=== PATIENT | male | born 1955 | race Asian ===

== ENCOUNTER 2023-06-16 06:07 | Inpatient (IN) | payer OTHER, SELFPAY ==
[2023-06-16] VITALS (51 sets, daily range): BP systolic 87–209; BP diastolic 42–134; PULSE 71; BMI 19.5
[2023-06-16 03:53] LABS: % Basophils 0.5 % (0-2); % Eosinophils 2.8 % (0-6); % Immature Granulocytes 0.2 % (0-0.5); % Lymphocytes 20.1 % (20.5-51.1); % Monocytes 7.7 % (1.7-9.3); % Neutrophils 68.7 % (42.2-75.2); Absolute Eosinophils 0.2 10^3/uL (0-0.7); Absolute Lymphocytes 1.8 10^3/uL (1.2-3.4); Absolute Monocytes 0.7 10^3/uL (0.1-0.6); Hematocrit 32.2 % (39.0-52.0); Hemoglobin 10.8 g/dL (13.0-18.0); Mean Corp Hgb Conc. 33.5 g/dL (33.0-37.0); Mean Corpuscular Hgb 25.2 pg (27.0-31.0); Mean Corpuscular Volume 75.2 fL (80.0-94.0); Mean Platelet Volume 10.7 fL (7.4-10.4); Nucleated Red Blood Cells % 0 % (-); Platelet Count 220 10^3/uL (130-400); Red Blood Cell Count 4.28 10^6/uL (4.70-6.10); Red Cell Dist. Width 15.5 % (11.5-14.5); White Blood Cell Count 8.7 10^3/uL (4.8-10.8)
[2023-06-16 03:53] LABS: Glucose - Point of Care 221 mg/dl (70-99)
--- NOTE | 2023-06-16 04:00 | ED.GENMED ---
History of Present Illness
<MARY Wagner - Last Filed: 06/16/23 04:16>
General
Chief Complaint: Breathing Problem
Source: patient and ambulance crew
Exam Limitations: none
Time Seen by Provider: 06/16/23 03:36
Travel History
Have you had any contact with someone who has COVID-19?: No
Do you have any symptoms of coronavirus? Fever > 100 degrees, chills, cough, shortness of breath, sore throat, loss of taste or smell, muscle aches, or headache?: No
History of Present Illness
History of Present Illness:
67 y/o M with ESRD, CHF presents to ED complaining of SOB x 4 hours and cough x 3 days. Patient arrived by EMS for SOB tonight, reported pulse ox 88%. Patient has dialysis scheduled for tomorrow (Friday, , Friday). He reports runny nose
for 2-3 days as well. He has not taken any medications for his symptoms. Patient denies sick contacts. Denies fever, chills, body aches, headache, nausea, vomiting, diarrhea, chest pain, or palpitations.
Past History
<MARY Wagnre - Last Filed: 06/16/23 04:16>
Past History
ED Past Medical History: CAD, CHF (Right sided weakness), COPD, CVA (with right sided weakness), HTN, Hypercholesterolemia, IDDM, Renal failure (Dialysis - - Friday), Seizures, Hypothyroidism and Other (Anemia, PNA, Ulcerative colitis)
ED Past Surgical History: Cardiac (Stents, Angioplasty) and Other (AV fistula left upper extremity, hernia repair)
Patient has exhibited threatening behavior?: No
Social History
Tobacco: Former smoker (Quit 1999)
Alcohol: None
Drug: None
Personal:
Living: with family
Employment: Retired
Family History
Family History: Other (Reviewed and noncontributory)
Review of Systems
<MARY Wagner - Last Filed: 06/16/23 04:16>
Review of Systems
Allergies reviewed?: Yes
All Other Systems: ROS reviewed and negative except as documented in HPI and ROS
Constitutional: Reports no symptoms
EENT: Reports runny nose
Respiratory: Reports cough and trouble breathing
Cardiac: Reports no symptoms
ABD/GI: Reports no symptoms
: Reports no symptoms
Musculoskeletal: Reports no symptoms
Skin: Reports no symptoms
Neurological: Reports no symptoms
Endocrine: Reports no symptoms
Hematologic/Lymphatic: Reports no symptoms
Psychiatric: Reports no symptoms
Phy Exam
<MARY Wagner - Last Filed: 06/16/23 04:16>
General Physical Exam
General Presentation: well appearing and no apparent distress
General age: appears stated age
General Skin: warm and dry
General Habitus: normal
General Mental: alert
General Hydration: appears well hydrated
ENT Exam
ENT Exam: EOMI, TM's normal and pharynx normal
Eye Exam
Eye Exam: PERRL, EOMI and conjunctiva normal
Cardiovascular Exam
Cardiovascular Exam: regular rate/rhythm and other (murmur )
Gastrointestinal Exam
Gastrointestinal Exam: normal bowel sounds, non tender, soft and non distended
Neurological Exam
Neurological Exam: alert and oriented x3
Skin Exam
Skin Exam: normal color and warm/dry
Psychiatric Exam
Psychiatric Exam: normal mood/affect
<Turner Meehan MD - Last Filed: 06/17/23 15:13>
Heart Failure Risk
Heart Failure Risk Score: Yes
History of Stroke or TIA: No
History of intubation for respiratory distress: No
Heart rate on ED arrival >/= 110: No
SaO2 <90% on arrival on room air: Yes
HR >/=110 during 3min walk test (or too ill to perform test): No
ECG has acute ischemic changes: No
Urea >/=12mmol/L (BUN 33.6mg/dL): Yes
Serum CO2>/=35mmol/L: No
Troponin I or T elevated to MA Level (0.4mg/dL): No
NT-proBNP >/=5,000ng/L (5,000pg/ml): Yes
HF Risk Score: 3
Admission Status: HIGH RISK 15.9% Consider SNF treatment or admission to hospital
Course
<MARY Wagner - Last Filed: 06/16/23 04:16>
Orders/Labs/Results
Orders:
Orders
06/16/23 03:35
EKG [Electrocardiogram (*1)] Urgent
Reason for Study: Shortness of Breath
06/16/23 03:36
EKG- Treatment ONCE
06/16/23 03:45
CR Chest Portable - 1 View Urgent
Comment:
Reason For Exam: sob
Reason Study Needs to be Portable: Patient Unstable
06/16/23 03:47
Complete Blood Count/With Diff Urgent
Comprehensive Metabolic Panel Urgent
Magnesium Urgent
NT-proBNP Urgent
TSH Urgent
Comment: TSH ADDED ON BY FLOOR 12:45PM 06-16-23
Troponin I Urgent
06/16/23 04:22
COVID-19 Antigen Urgent
Source: Nasal Swab
06/16/23 04:45
Nitroglycerin 100 mg/250 ml [Nitroglycerin Premix] 100 mg in 250 ml IV PER PROTOCOL
Initial dose in mcg/min, then titrate:: 10
Titrate to keep:: SBP < 160 mmHg
Titrate by mcg/min:: 5 mcg/min, may increase by 10 mcg/min if dose > 20 mcg/min
Frequency of titrations (minutes):: every 3-5 minutes
Maximum dose in mcg/min:: 200
Begin to taper infusion when:: Remained at goal for 2hrs
Taper by mcg/min:: 5 mcg/min
Frequency of taper (minutes) if patient maintains goal:: 30
Taper to off?: Yes
If infusion off & no longer maintaining goal:: Contact Provider
06/16/23 04:52
Dexamethasone Sod Phosphate [Decadron] 6 mg IV NOW STA
Ipratropium/Albuterol Sulfate [Duoneb] 3 ml INH R NOW ONE
06/16/23 04:57
Furosemide [Lasix] 40 mg IV NOW STA
06/16/23 05:52
Admit/Transfer Patient As Directed
Co-Sign Provider:
Level of Care: Inpatient admission
Assign to:: IMU- Intermediate Care
Physician / Group: [email or web address]
Diagnosis: Dyspoea, HTN urgency, acute on chr HFpEF, ESRD on HD
Reason for Hospitalization: Dysnoea, HTN urgency, acute on chr HFpEF, ESRD on HD
Expected length of stay greater than two midnights?: Yes
ELOS- Estimated Length of Stay in days: 3
I certify the patient meets the requirements for IP care: Yes
06/16/23 05:58
Code Status As Directed
Resuscitation Status: Full Code
06/16/23 05:59
Dextrose 50%-Water [Dextrose 50% Syringe] 12.5 grams IV [id number] PRN
Glucagon [GlucaGen] 1 mg IM PRN PRN
06/16/23 Breakfast
Cholesterol Lowering
At Your Request: Limited Participation
Fluid Restriction: 1200 mL/day (40 oz)
Cholesterol Lowering: Sodium, 2 Gram
Potassium, 2 gram
06/16/23 07:21
Acetaminophen [Tylenol] 650 mg PO Q4HPRN PRN
06/16/23 07:21
NEPHROLOGY CONSULT Routine
Consulting Provider: Emerita Gresham
Was physician already notified: Yes
Reason for consult: acute on chr HfpEF - vol managed by HD for ESRD
Activity As Directed
Activity Level: With Assistance
Bedside Glucose Monitoring As Directed
Frequency: AC&HS
Comment: Change to q6h if pt on TPN, tube feeding or not eating
Intake/ Output As Directed
Frequency: Per unit guidelines
Pneumatic Compression Sleeves As Directed
Type: Knee high
Vital Signs As Directed
Frequency: Per unit guidelines
Weight As Directed
Frequency: Daily
DX Deep Vein Thrombosis Video Routine
06/16/23 07:30
Insulin Aspart Corrective Low [Novolog Flexpen-Low Resistance] See Protocol SC AC
06/16/23 08:00
Aspirin Low Dose EC [Aspir Low (Enteric Coated)] 81 mg PO DAILY
Atorvastatin [Lipitor] 80 mg PO DAILY
Carvedilol [Coreg] 12.5 mg PO BID
Levothyroxine [Synthroid] 75 mcg PO DAILY
Lisinopril [Zestril] 20 mg PO DAILY
06/16/23 10:00
Clopidogrel Bisulfate [Plavix] 75 mg PO DAILY
06/16/23 22:00
Levetiracetam Extended Release [Keppra Xr (Extended Release)] 500 mg PO HS
Quetiapine Fumarate [Seroquel] 12.5 mg PO HS
06/17/23 07:33
Basic Metabolic Panel IN AM
Complete Blood Count/No Diff IN AM
Glycohemoglobin (HgbA1c) IN AM
06/18/23 06:00
Basic Metabolic Panel IN AM
Abnormal Lab Results
06/16/23 06/16/23
03:47 03:51
RBC 4.28 L 10^6/uL
(4.70-6.10)
Hgb 10.8 L g/dL
(13.0-18.0)
Hct 32.2 L %
(39.0-52.0)
MCV 75.2 L fL
(80.0-94.0)
MCH 25.2 L pg
(27.0-31.0)
RDW 15.5 H %
(11.5-14.5)
MPV 10.7 H fL
(7.4-10.4)
Absolute Monos (auto) 0.7 H 10^3/uL
(0.1-0.6)
Lymphocytes % 20.1 L %
(20.5-51.1)
Chloride 94 L mmol/L
(98-107)
BUN 37 H mg/dl
(9-20)
Creatinine 8.3 H* mg/dL
(0.7-1.3)
Glucose 256 H mg/dl
(70-99)
Magnesium 2.4 H mg/dl
(1.6-2.3)
Alkaline Phosphatase 148 H U/L
(38-126)
POC Glucose 221 H mg/dl
(70-99)
06/16/23 03:47
06/16/23 03:47
Vital Signs
Initial and Last Documented VS:
Initial Vital Signs
Pulse Ox
95
06/16/23 03:34
Last Documented Vital Signs
Temp Pulse Resp BP Pulse Ox
97.9 F 59 16 116/48 100
06/17/23 13:08 06/17/23 13:08 06/17/23 13:08 06/17/23 13:08 06/17/23 13:08
<Turner Meehan MD - Last Filed: 06/17/23 15:13>
Orders/Labs/Results
Orders:
Orders
06/16/23 03:35
EKG [Electrocardiogram (*1)] Urgent
Reason for Study: Shortness of Breath
06/16/23 03:36
EKG- Treatment ONCE
06/16/23 03:45
CR Chest Portable - 1 View Urgent
Comment:
Reason For Exam: sob
Reason Study Needs to be Portable: Patient Unstable
06/16/23 03:47
Complete Blood Count/With Diff Urgent
Comprehensive Metabolic Panel Urgent
Magnesium Urgent
NT-proBNP Urgent
TSH Urgent
Comment: TSH ADDED ON BY FLOOR 12:45PM 06-16-23
Troponin I Urgent
06/16/23 04:22
COVID-19 Antigen Urgent
Source: Nasal Swab
06/16/23 04:45
Nitroglycerin 100 mg/250 ml [Nitroglycerin Premix] 100 mg in 250 ml IV PER PROTOCOL
Initial dose in mcg/min, then titrate:: 10
Titrate to keep:: SBP < 160 mmHg
Titrate by mcg/min:: 5 mcg/min, may increase by 10 mcg/min if dose > 20 mcg/min
Frequency of titrations (minutes):: every 3-5 minutes
Maximum dose in mcg/min:: 200
Begin to taper infusion when:: Remained at goal for 2hrs
Taper by mcg/min:: 5 mcg/min
Frequency of taper (minutes) if patient maintains goal:: 30
Taper to off?: Yes
If infusion off & no longer maintaining goal:: Contact Provider
06/16/23 04:52
Dexamethasone Sod Phosphate [Decadron] 6 mg IV NOW STA
Ipratropium/Albuterol Sulfate [Duoneb] 3 ml INH R NOW ONE
06/16/23 04:57
Furosemide [Lasix] 40 mg IV NOW STA
06/16/23 05:52
Admit/Transfer Patient As Directed
Co-Sign Provider:
Level of Care: Inpatient admission
Assign to:: IMU- Intermediate Care
Physician / Group: [email or web address]
Diagnosis: Dyspoea, HTN urgency, acute on chr HFpEF, ESRD on HD
Reason for Hospitalization: Dysnoea, HTN urgency, acute on chr HFpEF, ESRD on HD
Expected length of stay greater than two midnights?: Yes
ELOS- Estimated Length of Stay in days: 3
I certify the patient meets the requirements for IP care: Yes
06/16/23 05:58
Code Status As Directed
Resuscitation Status: Full Code
06/16/23 05:59
Dextrose 50%-Water [Dextrose 50% Syringe] 12.5 grams IV [id number] PRN
Glucagon [GlucaGen] 1 mg IM PRN PRN
06/16/23 Breakfast
Cholesterol Lowering
At Your Request: Limited Participation
Fluid Restriction: 1200 mL/day (40 oz)
Cholesterol Lowering: Sodium, 2 Gram
Potassium, 2 gram
06/16/23 07:21
Acetaminophen [Tylenol] 650 mg PO Q4HPRN PRN
06/16/23 07:21
NEPHROLOGY CONSULT Routine
Consulting Provider: Emerita Gresham
Was physician already notified: Yes
Reason for consult: acute on chr HfpEF - vol managed by HD for ESRD
Activity As Directed
Activity Level: With Assistance
Bedside Glucose Monitoring As Directed
Frequency: AC&HS
Comment: Change to q6h if pt on TPN, tube feeding or not eating
Intake/ Output As Directed
Frequency: Per unit guidelines
Pneumatic Compression Sleeves As Directed
Type: Knee high
Vital Signs As Directed
Frequency: Per unit guidelines
Weight As Directed
Frequency: Daily
DX Deep Vein Thrombosis Video Routine
06/16/23 07:30
Insulin Aspart Corrective Low [Novolog Flexpen-Low Resistance] See Protocol SC AC
06/16/23 08:00
Aspirin Low Dose EC [Aspir Low (Enteric Coated)] 81 mg PO DAILY
Atorvastatin [Lipitor] 80 mg PO DAILY
Carvedilol [Coreg] 12.5 mg PO BID
Levothyroxine [Synthroid] 75 mcg PO DAILY
Lisinopril [Zestril] 20 mg PO DAILY
06/16/23 10:00
Clopidogrel Bisulfate [Plavix] 75 mg PO DAILY
06/16/23 22:00
Levetiracetam Extended Release [Keppra Xr (Extended Release)] 500 mg PO HS
Quetiapine Fumarate [Seroquel] 12.5 mg PO HS
06/17/23 07:33
Basic Metabolic Panel IN AM
Complete Blood Count/No Diff IN AM
Glycohemoglobin (HgbA1c) IN AM
06/18/23 06:00
Basic Metabolic Panel IN AM
Abnormal Lab Results
06/16/23 06/16/23
03:47 03:51
RBC 4.28 L 10^6/uL
(4.70-6.10)
Hgb 10.8 L g/dL
(13.0-18.0)
Hct 32.2 L %
(39.0-52.0)
MCV 75.2 L fL
(80.0-94.0)
MCH 25.2 L pg
(27.0-31.0)
RDW 15.5 H %
(11.5-14.5)
MPV 10.7 H fL
(7.4-10.4)
Absolute Monos (auto) 0.7 H 10^3/uL
(0.1-0.6)
Lymphocytes % 20.1 L %
(20.5-51.1)
Chloride 94 L mmol/L
(98-107)
BUN 37 H mg/dl
(9-20)
Creatinine 8.3 H* mg/dL
(0.7-1.3)
Glucose 256 H mg/dl
(70-99)
Magnesium 2.4 H mg/dl
(1.6-2.3)
Alkaline Phosphatase 148 H U/L
(38-126)
POC Glucose 221 H mg/dl
(70-99)
06/16/23 03:47
06/16/23 03:47
Vital Signs
Initial and Last Documented VS:
Initial Vital Signs
Pulse Ox
95
06/16/23 03:34
Last Documented Vital Signs
Temp Pulse Resp BP Pulse Ox
97.9 F 59 16 116/48 100
06/17/23 13:08 06/17/23 13:08 06/17/23 13:08 06/17/23 13:08 06/17/23 13:08
<Turner Meehan MD - Last Filed: 06/17/23 15:13>
*Critical Care Note
Total Time (30-74mins, 75-104mins- exclusive of procedures): 40 min
ED Attending Note
<MARY Wagner - Last Filed: 06/16/23 04:16>
-
Portions of this chart may have been created with voice recognition software.� Occasional wrong word or��sound alike� substitutions may have occurred due to the inherent limitations of voice recognition software.
<Turner Meehan MD - Last Filed: 06/17/23 15:13>
ED Attending Note
Patient seen and examined by attending physician: Yes
ED Attending Note:
Patient with history of end-stage renal disease on hemodialysis (Friday, , Friday), presents to ED secondary to worsening shortness of breath over the past 2 days despite receiving full dialysis session on Friday. Patient also reports
cough and runny nose x 3 days. Denies leg pain or swelling. Denies chest pain. Denies back pain. Denies fever.
Physical Exam
General: moderate respiratory distress, not acutely ill. afebrile
Head: nc/at. eomi
Neck: supple. no meningeal signs.
Heart: s1/s2 regular rate and rhythm, no murmur. equal radial pulses.
Lungs: moderate respiratory distress. rhonchi/wheezing bilaterally
Abdomen: normal bowel sounds. not tender.
Neuro: alert and oriented. no focal neurological deficits
Skin: no rash
Psychiatric: well kept. interactive and cooperative
Extremities: no edema. no calf tenderness.
History/exam concerning for fluid overload, in the setting of probable URI. Hypoxia improved with supplemental oxygen.
Nitroglycerin gtt started for blood pressure control, as well as vasodilation, until dialysis can be arranged.
Nephrology () notified via [employer]
Critical care statement: A total of 40 minutes of critical care time was provided for this patient. This includes management of unstable vital signs, evaluation of the patient at bedside, reviewing the patient's pertinent medical records, discussion
with consultants, review of old EKGs and review of pertinent medical records. This time with separate from time utilized to perform the aforementioned documented procedures
Discharge Plan
Departure
Patient Disposition: Admit
Date of Disposition: 06/16/23
Time of Disposition: 04:57
Admit to: Telemetry
Presentation/result/management discussed w/ accepting MD/DO: Hospitalist
Discharge Problem:
Fluid overload, URI (upper respiratory infection)
Interventions
Interventions:
*Risk Screen - Suicide Last Done: 06/16/23 10:21
*General Assessment Last Done: 06/16/23 03:43
*Neglect/Abuse Screening Last Done: 06/16/23 03:43
ED- Fall Risk Assessment Last Done: 06/16/23 07:32
*ED COVID-19 Vaccine History Last Done: 06/16/23 03:43
*Nursing Disposition Last Done: 06/16/23 07:32
ED- Cardiac Assessment Last Done: 06/16/23 03:50
ED- Pulmonary Assessment Last Done: 06/16/23 03:50
Discharge Date and Time
Discharge Date/Time: 06/16/23 07:32
[2023-06-16 04:24] LABS: ALT (SGPT) 15 U/L (0-50); AST (SGOT) 23 U/L (17-59); Albumin 4.3 g/dl (3.5-5.0); Alkaline Phosphatase 148 U/L (38-126); Blood Urea Nitrogen 37 mg/dl (9-20); Calcium 9.7 mg/dl (8.4-10.2); Carbon Dioxide 30 mmol/L (22-30); Chloride 94 mmol/L (98-107); Glucose 256 mg/dl (70-99); Magnesium 2.4 mg/dl (1.6-2.3); Potassium 4.4 mmol/L (3.5-5.1); Sodium 137 mmol/L (135-145); eGFR 6.51
[2023-06-16 04:25] LABS: NT-proBNP > 27000 pg/ml; Troponin I 0.034 ng/ml
[2023-06-16 04:50] LABS: COVID-19 Antigen Negative (Negative)
[2023-06-16] MEDS: DECADRON 6 MG IV (05:00)
[2023-06-16] MEDS: DUONEB 3 ML INH (05:00)
[2023-06-16] MEDS: NITROGLYCERIN PREMIX 250 IV (05:03)
[2023-06-16] MEDS: LASIX 40 MG IV (05:46)
--- NOTE | 2023-06-16 05:47 | HPS.HSE ---
Addendum entered and electronically signed by Thomas Crystal MD 06/16/23 06:24:
level of care; switch to IMU while on Nitro gtt
Original Note:
Family Physician
-
Family Physician: Marcelo Lares
Chief Complaint
-
SoB
History of Present Illness
67M HX ESRD on HD ( TTS) , CHF pw SOB x 4 hours and cough x 3 days.
[facility] for SOB tonight, reported pulse ox 88%.
He reports runny nose for 2-3 days as well. He has not taken any medications for his symptoms. Patient denies sick contacts.
Denies fever, chills, body aches, headache, nausea, vomiting, diarrhea, chest pain, or palpitations.
Medical History
Past Medical History
Past Medical History: Reports Other
Additional Past Medical History:
CAD, CHF (Right sided weakness), COPD, CVA (with right sided weakness), HTN, Hypercholesterolemia, IDDM, Renal failure (Dialysis - Friday), Seizures, Hypothyroidism and Other (Anemia, PNA, Ulcerative colitis)
Past Surgical History: Reports Other
Additional Past Surgical History:
Cardiac (Stents, Angioplasty) and Other (AV fistula left upper extremity, hernia repair)
Social History
Tobacco: Former Smoker
Alcohol: None
Personal:
Living: With Family
Family History
Family History: Not pertinent
Allergies / Home Medications
Allergies reflects when Allergies were last updated in [employer].
Home Medications with original date entered in [employer]
Allergy/Medication List:
Allergies
Allergy/AdvReac Type Severity Reaction Status Date / Time
heparin Allergy pt refuses Verified 04/01/23 15:28
d/t
denominational
reasons
latex Allergy Itching Verified 04/01/23 06:22
pork derived (porcine) Allergy denominational Verified 04/01/23 06:22
reasons
Home Medications
clopidogrel 75 mg tablet 75 mg PO DAILY Blood clot prevention/tx 05/10/21
sevelamer HCl 800 mg tablet 1,600 mg PO UD Kidney Disease 05/10/21
vitamin B complex-vitamin C-folic acid 0.8 mg tablet (Nephro-Miranda) 1 tab PO DAILY Supplement ##0 05/10/21
lacosamide 50 mg tablet 50 mg PO BID Seizures 05/22/21
docusate sodium 100 mg capsule (Colace) 100 mg PO BID Constipation 03/27/22
atorvastatin 80 mg tablet (Lipitor) 80 mg PO DAILY High cholesterol 08/28/22
calcitriol 0.25 mcg capsule 0.25 mcg PO DAILY Kidney Disease 08/28/22
isosorbide mononitrate 30 mg tablet,extended release 24 hr 30 mg PO DAILY Blood pressure 08/28/22
levetiracetam 500 mg tablet,extended release 24 hr 500 mg PO HS Seizures 08/28/22
linaclotide 72 mcg capsule (Linzess) 72 mcg PO DAILYPRN PRN constipation 08/28/22
mesalamine 400 mg capsule (with delayed release tablets inside) 400 mg PO BID Gastrointestinal issue 08/28/22
lisinopril 20 mg tablet 20 mg PO DAILY Blood pressure #30 tabs 08/29/22
insulin glargine 100 unit/mL subcutaneous solution (Lantus U-100 Insulin) 10 unit (0.1 mL) SC HS Diabetes #0 mL 11/13/22
carvedilol 12.5 mg tablet 12.5 mg PO BID Heart Failure 11/27/22
levothyroxine 25 mcg tablet 75 mcg PO DAILY Thyroid 11/27/22
quetiapine 25 mg tablet (Seroquel) 12.5 mg PO HS Mental Health/Anxiety 02/28/23
acetaminophen 325 mg tablet (Tylenol) 325 mg PO DAILYPRN PRN mild pain 04/01/23
aspirin 81 mg tablet,delayed release 81 mg PO DAILY Blood Clot Prevention/Tx 04/01/23
bimatoprost 0.01 % eye drops (Lumigan) 1 drp BOTH EYES QPM Eye Condition 04/01/23
insulin aspart U-100 100 unit/mL (3 mL) subcutaneous pen (Novolog FlexPen U-100 Insulin aspart) 0 sliding scale dose SC UD Diabetes 04/01/23
Review of Systems
-
Constitutional: Reports No Symptoms
EENT: Reports No Symptoms
Respiratory: Reports See HPI
Cardiac: Reports No Symptoms
Abdomen/GI: Reports No Symptoms
: Reports No Symptoms
Musculoskeletal: Reports No Symptoms
Skin: Reports No Symptoms
Neurological: Reports No Symptoms
Endocrine: Reports No Symptoms
Hematologic/Lymphatic: Reports No Symptoms
Psych: Reports No Symptoms
Physical Exam
Vital Signs
Vital Signs
Temp Pulse Resp BP Pulse Ox
97.1 F 68 15 151/45 97
06/16/23 03:36 06/16/23 05:30 06/16/23 05:30 06/16/23 05:30 06/16/23 05:30
Physical Exam
General: Other (see below )
Laboratory Results
-
06/16/23 03:47
06/16/23 03:47
Laboratory Results
Total Bilirubin 1.0 mg/dl (0.2-1.3) 06/16/23 03:47
AST 23 U/L (17-59) 06/16/23 03:47
ALT 15 U/L (0-50) 06/16/23 03:47
Alkaline Phosphatase 148 U/L (38-126) H 06/16/23 03:47
Troponin I 0.034 ng/ml 06/16/23 03:47
Data Reviewed
-
Lab Data: Labs Reviewed by me
Old Records: Reviewed
Impression/Plan
-
Reviewed VS:
Vital Signs
Temp Pulse Resp BP Pulse Ox
97.1 F 73 15 147/92 97
06/16/23 03:36 06/16/23 05:46 06/16/23 05:30 06/16/23 05:46 06/16/23 05:30
PE
Gen: NAD
HEENT: anicteric
Neck: supple
Lungs: CTA
Cor: RRR S1 S2
Abdomen: soft abdomen
[employer]: NF[employer]
MS: no edema
Psych: normal mood/affect
Data
Hgb 10.8 - baseline is 12.3
K 4.4
Cl 94
CO2 30
BUN 37
Cr 8.3
eGFR 6.5
BG 220
BG 256
Mg 2.4
TPNI 0.034
pBNP > 27K seems baseline
NEG Covid
EKG
NORMAL SINUS RHYTHM
LEFT VENTRICULAR HYPERTROPHY WITH REPOLARIZATION ABNORMALITY ( Sokolow-Vincent )
ABNORMAL ECG
WHEN COMPARED WITH ECG OF 01-APR-2023 07:25,
NO SIGNIFICANT CHANGE WAS FOUND
CXR: pending report
Last hospitalist admission: 04/01/23 - 04/02/23
Discharge diagnosis:
1. Acute hypoxic respiratory insufficiency
2. Fluid overload
3. End-stage renal failure on dialysis
4. Type 2 diabetes
5. Chronic heart failure with a preserved ejection fraction
6. Labile hypertension
7. Coronary artery disease status post stent
8. History of stroke with residual right-sided weakness
9. Hyperlipidemia
10. Hypothyroidism
11. Secondary hyperparathyroidism
ASSESSMENT & PLAN
Dyspnea
Hypertensive ? crisis
HX CHF/ chr HFpEF
ESRD on HD /
- Vol manage by HD- today per Nephrology
- Nephro consulted
Chronic HFpEF
- diet managed by HD
- on Lasix
CAD with stenting
- Continue aspirin, statin
- carvedilol, Imdur
IDDM
- ad ISS low
- continue Lantus
Seizure disorder
- continue Keppra and lacosamide
Failure to thrive HX
Cognitive decline HX
HX stroke with right-sided hemiparesis
- cont Plavix, statin
Secondary hyperparathyroidism
Peripheral arterial disease
- cont ASA
Constipation
- continue Linzess
Insomnia
- continue Seroquel
DVT ppx: SC heparin
Code: Full
IP TLM
--- NOTE | 2023-06-16 08:51 | W.PN.HOSP.TC ---
Today's Communication/Plan
-
Nephrology consult
Transfer to telemetry
Assessment / Plan
Assessment / Plan
Gen-AAOx3, NAD
HEENT-NC, AT, anicteric, clear oral mm
Neck-supple
CV-reg, no M, +S1/S2
Lungs-clear B/L
Abd-soft, NT, ND
Ext-no edema
Musculoskeletal-no cyanosis, clubbing
Skin-warm and dry
Neuro-grossly non-focal
Psych-calm, cooperative
Hypertensive emergency (POA) -resolved. Off nitroglycerin drip. Transfer to telemetry.
Acute hypoxic respiratory insufficiency -requiring 2 L nasal cannula oxygen currently. Wean down as able. Chest x-ray shows significant bilateral pulmonary edema. Pharmacist notes that he has not had his prescriptions filled in several months.
This likely contributed to his hospitalization. However, I did speak with the patient's who mentioned that he has been taking all his medications at home, did not miss any fills of his prescriptions.
Acute on chronic heart failure preserved EF -improving. Will need to remove volume with dialysis. Patient's admits that he has been drinking some extra fluid lately. Maintain fluid and sodium restriction.
ESRD on dialysis -normally gets dialyzed Friday, , Friday. Nephrology consulted. Perhaps he can have a session today if schedule permits.
CAD with history of stenting
DM 2 with hyperglycemia -please update home medication list. Continue sliding scale insulin for now. Glucose 270 this morning. Received 6 mg of IV Decadron in the emergency room for wheezing.
Seizure disorder -continue antiepileptics.
History of stroke with right hemiparesis
Hypothyroidism
Chronic microcytic anemia -likely combination of CKD related anemia, rule out iron deficiency.
PAD -stable.
Secondary hyperparathyroidism
Full code
Anticipated Discharge: 24 - 48 hours
Subjective/Interval History
-
Date of Service: June 16, 2023
Patient seen and examined. Denies shortness of breath currently. Watching TV. No complaints.
Objective Data
-
Labs:
Laboratory Results
06/16/23
03:47
WBC 8.7
Hgb 10.8 L
Hct 32.2 L
Plt Count 220
Sodium 137
Potassium 4.4
Chloride 94 L
Carbon Dioxide 30
BUN 37 H
Creatinine 8.3 H*
Glucose 256 H
Calcium 9.7
Total Bilirubin 1.0
AST 23
ALT 15
Alkaline Phosphatase 148 H
Vital Signs:
Vital Signs
Temp Pulse Resp BP Pulse Ox
97.1 F 74 21 126/66 100
06/16/23 03:36 06/16/23 07:05 06/16/23 07:05 06/16/23 07:05 06/16/23 06:45
Review of Systems
-
History Source: Patient
All other systems: Reviewed and negative
[2023-06-16 08:59] LABS: Glucose - Point of Care 270 mg/dl (70-99)
--- NOTE | 2023-06-16 10:23 | W.CON.NEPH ---
Consultation
-
Date/Time Consultation Requested: 06/16/23 at 7:03am
Date/Time Consultation Performed: 06/16/23 at 10am
Requesting Provider: Jose Raul Case
Performing Provider: wale Love
Reason for Consultation: ESRD
Medical History
-
Chief Complaint: SOB
History of Present Illness:
The patient is 67y/o M with PMH of ESRD on HD TTS [facility], left UE AVF, well known to our service from multiple and recurrent [place] hospitalizations with chronic fluid overload in the setting of ESRD some of it is from poor compliance.
Can not tolerate large UFs with HD. He comes again with c/o sob, runny nose and cough. Reportedly had HD on Friday. Per chart pt was not compliant with fluid on weekend. He is confused and unable to provide any history. He initially was on NItro
gtt which currently stopped. His CXR shows significant pulm edema and on NC 3lit. He has a history of diastolic heart failure with a slight reduction in EF of 50%. He has diabetes mellitus with multiple microvascular complications. He has history of
hypertension suboptimally controlled on a multitude of antihypertensive medications. H/o hyperphosphatemia on Renvela.
He also has progressive cerebral vascular disease with failure to thrive and what appears to be cognitive decline.
Past Medical History
1.� ESRD presumably diabetic nephropathy, maintained on a T/T/S HD
�� � schedule at [facility].
2.� Hypertension, multiple drug and suboptimally controlled.
3.� CAD with prior stenting.
4.� History of diastolic heart failure with current chronic volume
�� � overload with multiple hospitalizations and LV EF 50%.
5.� Progressive cerebral vascular disease with concern for vascular
�� � dementia.
6.� Cognitive decline.
7.� History of chronic right pleural effusion.
8.� Diabetes mellitus with multiple microvascular complications.
9.� Left upper arm AV graft.
10. PAD.
11. Anemia of CKD.
12. Secondary hyperparathyroidism, treated with vitamin D analogue.
13. Seizure disorder.
14. Failure to thrive.
15. History of CVA with right-sided hemiparesis.
16. Sigmoid colitis 2017.
17. COVID-15 April 2022.
18. Former smoker, quitting 1999.
19. Chronic fluid overload.
20. History recurrent metabolic encephalopathy.
21. Depression.
22. Hypothyroidism.
Social History
He resides in a home setting with his and
family. He quit smoking cigarettes in 1999. No regular alcohol
intake. Retired from a managerial position.
Family History
Father complications of diabetes mellitus.
Mother complications of chronic malabsorption. No family
history of CKD or ESRD.
Allergies / Home Medications
Allergy/AdvReac Type Severity Reaction Status Date / Time
heparin Allergy pt refuses Verified 04/01/23 15:28
d/t
taoist
reasons
latex Allergy Itching Verified 04/01/23 06:22
pork derived (porcine) Allergy taoist Verified 04/01/23 06:22
reasons
Medication Instructions Recorded Confirmed Type
clopidogrel 75 mg tablet 75 mg PO DAILY Blood clot 05/10/21 06/16/23 History
prevention/tx
sevelamer HCl 800 mg tablet 1,600 mg PO UD Kidney Disease 05/10/21 06/16/23 History
vitamin B complex-vitamin C-folic 1 tab PO DAILY Supplement ##0 05/10/21 06/16/23 History
acid 0.8 mg tablet (Nephro-Miranda)
lacosamide 50 mg tablet 50 mg PO BID Seizures 05/22/21 06/16/23 History
docusate sodium 100 mg capsule 100 mg PO BID Constipation 03/27/22 06/16/23 History
(Colace)
atorvastatin 80 mg tablet (Lipitor) 80 mg PO DAILY High cholesterol 08/28/22 04/01/23 History
calcitriol 0.25 mcg capsule 0.25 mcg PO DAILY Kidney Disease 08/28/22 04/01/23 History
isosorbide mononitrate 30 mg 30 mg PO DAILY Blood pressure 08/28/22 06/16/23 History
tablet,extended release 24 hr
levetiracetam 500 mg 500 mg PO HS Seizures 08/28/22 06/16/23 History
tablet,extended release 24 hr
linaclotide 72 mcg capsule 72 mcg PO DAILYPRN PRN constipation 08/28/22 04/01/23 History
(Linzess)
mesalamine 400 mg capsule (with 400 mg PO BID Gastrointestinal 08/28/22 06/16/23 History
delayed release tablets inside) issue
lisinopril 20 mg tablet 20 mg PO DAILY Blood pressure #30 08/29/22 06/16/23 Rx
tabs
insulin glargine 100 unit/mL 10 unit (0.1 mL) SC HS Diabetes #0 11/13/22 04/01/23 Rx
subcutaneous solution (Lantus mL
U-100 Insulin)
carvedilol 12.5 mg tablet 12.5 mg PO BID Heart Failure 11/27/22 04/01/23 History
levothyroxine 25 mcg tablet 75 mcg PO DAILY Thyroid 11/27/22 04/01/23 History
quetiapine 25 mg tablet (Seroquel) 12.5 mg PO HS Mental Health/Anxiety 02/28/23 06/16/23 History
acetaminophen 325 mg tablet 325 mg PO DAILYPRN PRN mild pain 04/01/23 04/01/23 History
(Tylenol)
aspirin 81 mg tablet,delayed 81 mg PO DAILY Blood Clot 04/01/23 06/16/23 History
release Prevention/Tx
bimatoprost 0.01 % eye drops 1 drp BOTH EYES QPM Eye Condition 04/01/23 06/16/23 History
(Lumigan)
insulin aspart U-100 100 unit/mL 0 sliding scale dose SC UD Diabetes 04/01/23 04/01/23 History
(3 mL) subcutaneous pen (Novolog
FlexPen U-100 Insulin aspart)
Review of Systems
-
unable to obtain as pt is confused
Physical Exam
Vital Signs
Vital Signs
Temp Pulse Resp BP Pulse Ox
97.5 F 74 21 126/66 100
06/16/23 07:35 06/16/23 07:05 06/16/23 07:05 06/16/23 07:05 06/16/23 06:45
Lab Results
WBC 8.7 10^3/uL (4.8-10.8) 06/16/23 03:47
RBC 4.28 10^6/uL (4.70-6.10) L 06/16/23 03:47
Hgb 10.8 g/dL (13.0-18.0) L 06/16/23 03:47
Hct 32.2 % (39.0-52.0) L 06/16/23 03:47
Plt Count 220 10^3/uL (130-400) 06/16/23 03:47
Sodium 137 mmol/L (135-145) 06/16/23 03:47
Potassium 4.4 mmol/L (3.5-5.1) 06/16/23 03:47
Chloride 94 mmol/L (98-107) L 06/16/23 03:47
Carbon Dioxide 30 mmol/L (22-30) 06/16/23 03:47
BUN 37 mg/dl (9-20) H 06/16/23 03:47
Creatinine 8.3 mg/dL (0.7-1.3) H* 06/16/23 03:47
eGFR 6.51 06/16/23 03:47
Glucose 256 mg/dl (70-99) H 06/16/23 03:47
Calcium 9.7 mg/dl (8.4-10.2) 06/16/23 03:47
Wzi-P-Vlwyruhzkyt Pept > 04843 pg/ml 06/16/23 03:47
Albumin 4.3 g/dl (3.5-5.0) 06/16/23 03:47
Diagnostic Imaging Report
SignedOrder #:[id number]
Exams:� CR Chest Portable - 1 View
CPT: 23245
PROCEDURE: CR Chest Portable - 1 View
CLINICAL INDICATION: Shortness of breath. End-stage renal disease treated with hemodialysis.
A sitting AP portable view of the chest was obtained. Comparison is made with prior radiographic examinations of the chest performed 04/01/2023, 02/25/2023, 12/16/2022, and 11/27/2022. Comparison is made with a CTA examination of the chest performed
04/02/2022.
FINDINGS:
There is mild to moderate left to right mediastinal shift which has increased since 04/01/2023. There is moderate enlargement of the cardiac silhouette. There is severe calcific atherosclerotic plaque in the coronary arteries and thoracic aorta. The
pulmonary vasculature is diffusely distended. There is a moderate amount of bilateral perihilar airspace opacity. There are small bilateral pleural effusions layering in the lateral costophrenic angles in the lateral aspect of both pleural spaces.
There is no radiographic evidence for pneumothorax.
There is mild osteoarthritis of the right glenohumeral and acromioclavicular joints. There is no radiographic evidence for pneumoperitoneum or abnormal bowel dilatation in the upper abdomen.
IMPRESSION:
1. � MODERATE to SEVERE ACUTE INTERSTITIAL and ALVEOLAR CARDIOGENIC PULMONARY EDEMA.
2. � Small bilateral pleural effusions.
3. � Mild to moderate left to right mediastinal shift suggesting volume loss in the right lung (probably secondary to partial right lower lobe atelectasis).
4. � Severe calcific atherosclerotic plaque in the coronary arteries and thoracic aorta.
Electronically signed by Abraham Velasquez MD 06/16/2023 7:10 AM
Dictated By: Abraham Velasquez MD.
Dictated Date & Time: 06/16/23 0645
Signed/Co-Signer By: [place] MD,Abraham C. /
Signed/Co-Signer Date & Time: 06/16/23 0710 /
Physical Exam
General: Awake and Alert
HEENT: EOMI and Anicteric
Respiratory: Nonlabored Respirations and Other (decreased BS bilat)
Cardiac: S1/S2 and No Edema
Abdomen: Soft and Nontender
Musculoskeletal: No Cyanosis and No Edema
Skin: No Rash
Neuro: Nonfocal/Grossly Intact
Psych: Other (confused)
Assessment/Plan
-
IMP:
HTN emergency
Acute and recurrent hypoxemic respiratory failure
History recurrent acute respiratory failure secondary to fluid overload +/- accelerated BP
Fluid overload
ESRD [facility]TS [facility]
Progressive cerebrovascular disease (vascular dementia?)
Known diastolic dysfunction with chronic fluid overload though EF 50%
History right pleural effusion
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
Left upper arm AV graft
Hypertension, multidrug suboptimally controlled
CAD with prior stenting (LVEF 50%)
PAD
Anemia of CKD
Secondary hyperparathyroidism on vitamin D analog
Seizure disorder
Failure to thrive
Cognitive decline
History of stroke with right-sided hemiparesis.
Sigmoid colitis 2018
COVID-15 April 2022
Former smoker
Chronic fluid overload
Recurrent metabolic encephalopathy
Depression
Hyperphosphatemia
SHPTH
Plan:
Multiple admits for hypervolemia, presented for same
will arrange UF today and HD tomorrow
previously extra UF resulted in profound hypotension
He is confused from baseline-w/u per primary
cont home meds
pt should strictly comply with renal diet and FR 33ounces/day
d/w nursing
Data Reviewed
-
Radiology: Image Personally Visualized and interpreted (CXR noted)
Labs: Labs Reviewed by me
[2023-06-16] MEDS: NOVOLOG FLEXPEN-LOW RESISTANCE SC (11:10)
--- NOTE | 2023-06-16 12:18 | W.PN.NEPH.HD ---
Assessment
-
pt seen during HD
SBP increasing off nitro gtt
try UF as much as possible
noted pt has dysphagia
AVG functions well
Progress Note - Hemodialysis
-
Date of Service: June 16, 2023
Duration: 2 hours
Opti-Dialyzer: 160
Ultrafiltration: Other (1.5-2lit)
Blood Flow: 400
Dialysate Flow: 600
Heparin: no
EPO: no
[2023-06-16] MEDS: NOVOLOG FLEXPEN-LOW RESISTANCE 3 UNITS SC (12:50)
[2023-06-16 12:56] LABS: Glucose - Point of Care 281 mg/dl (70-99)
--- NOTE | 2023-06-16 13:52 | PTCARENOTE ---
Patient admitted to IMU due to dyspnea and HTN. Nitro drip was off on arrival. SBP was less than 160. During dialysis blood pressure was elevated, BP is now 178/89. Patient was given a few sips of apple juice and he coughed. Speech therapy consulted
and patient is now NPO due to aspiration risk until cleared by speech. Discussed with Dr. Melton, new orders obtained.
[2023-06-16] MEDS: PLAVIX PO (14:08)
[2023-06-16] MEDS: ASPIR LOW (ENTERIC COATED) PO (14:08)
[2023-06-16] MEDS: ZESTRIL PO (14:08)
--- NOTE | 2023-06-16 14:19 | PTCARENOTE ---
Patient coughing with oral intake, has not had any solids, only a few sips of apple juice. Unable to administer oral medication at this time due to aspiration risk. Speech will be up shortly for eval. Blood pressure is now 156/68. IV hydralazine
ordered with parameters of SBP >180. Patient is for transfer to [facility]. Report to be called.
--- NOTE | 2023-06-16 14:44 | PTCARENOTE ---
Report given to Arcadio CUMMINGS for transfer to [facility]. blood pressure is now 156/68. Report included blood pressure, dialysis treatment, aspiration issues. Belongings sent with patient. Dentures in mouth at time of transfer.
[2023-06-16] MEDS: ZESTRIL 20 MG PO (14:57)
[2023-06-16] MEDS: PLAVIX 75 MG PO (14:57)
[2023-06-16] MEDS: ASPIR LOW (ENTERIC COATED) 81 MG PO (14:57)
--- NOTE | 2023-06-16 14:59 | PTCARENOTE ---
During speech eval patient was able to take pills in apple sauce. Information endorsed to Arcadio CUMMINGS for transfer.
[2023-06-16 15:10] LABS: TSH 1.52 uIU/ml (0.47-4.68)
--- NOTE | 2023-06-16 15:17 | PTOTSP ---
Video Swallow Examination
Patient has a chronic history of dysphagia and chronic risk factors for this (i.e., COPD, CVA with right sided weakness, CHF, cognitive impairment). He has not had any video swallow studies at this hospital. Last known diet recommendation was
Regular, Thin liquids via single cup sips (04/02/2023).
During this evaluation, assistance was required to stabilize cup due to tremoring of left hand. Patient had coughing with drinking of thin liquids via straw during this evaluation. No overt s/s of aspiration observed with single cup sips.
Recommend:
1. Regular, Thin Liquids via cup
2. Medications whole in puree
3. FULL SUPERVISION and ASSISTANCE to self-feed
4. Strategies: small single sips/bites, slow rate, avoid straw
5. Oral care 3-5x daily to reduce risk for complications if aspiration were to occur
6. Video swallow study could be considered to objectively assess oral/pharyngeal swallowing physiology and further develop treatment plan as appropriate.
--- NOTE | 2023-06-16 16:00 | PTCARENOTE ---
Patient received to room 431 from IMU. Patient ambulated into room with rolling walker and assist of 2 nursing staff. Patient made comfortable in chair with chair alarm intact and call rosas in reach. Patient oriented to room. Will monitor.
[2023-06-16 16:53] LABS: Glucose - Point of Care 336 mg/dl (70-99)
[2023-06-16] MEDS: NOVOLOG FLEXPEN-LOW RESISTANCE 4 UNITS SC (18:19)
[2023-06-16 22:05] LABS: Glucose - Point of Care 303 mg/dl (70-99)
[2023-06-16] MEDS: KEPPRA XR (EXTENDED RELEASE) 500 MG PO (22:28)
[2023-06-16] MEDS: SEROQUEL 12.5 MG PO (22:28)
[2023-06-16] MEDS: LANTUS 0.100000000000000006 UNITS SC (22:29)
[2023-06-17] VITALS (10 sets, daily range): BP systolic 102–167; BP diastolic 48–77; PULSE 62; BMI 19.4
[2023-06-17 06:55] LABS: Glucose - Point of Care 138 mg/dl (70-99)
--- NOTE | 2023-06-17 07:25 | PTCARENOTE ---
Patient sitting upright in bed feeding self rice and vegetables. Patient scheduled to start HD shortly. Call ralph in reach.
[2023-06-17 08:27] LABS: Hematocrit 28.1 % (39.0-52.0); Hemoglobin 9.4 g/dL (13.0-18.0); Mean Corp Hgb Conc. 33.5 g/dL (33.0-37.0); Mean Corpuscular Hgb 25.3 pg (27.0-31.0); Mean Corpuscular Volume 75.7 fL (80.0-94.0); Mean Platelet Volume 10.7 fL (7.4-10.4); Platelet Count 227 10^3/uL (130-400); Red Blood Cell Count 3.71 10^6/uL (4.70-6.10); White Blood Cell Count 9.7 10^3/uL (4.8-10.8)
[2023-06-17 09:29] LABS: Blood Urea Nitrogen 60 mg/dl (9-20); Calcium 8.9 mg/dl (8.4-10.2); Carbon Dioxide 25 mmol/L (22-30); Chloride 95 mmol/L (98-107); Estimated Creatinine Clearance 5 ml/min; Glucose 209 mg/dl (70-99); Potassium 4.5 mmol/L (3.5-5.1); Sodium 134 mmol/L (135-145)
[2023-06-17] MEDS: FLEXBUMIN 25% FOR HEMODIALYSIS 12.5 GRAMS IV (09:35)
[2023-06-17] MEDS: MANNITOL 12.5 GRAMS IV (09:40)
[2023-06-17 10:04] LABS: Glucose - Point of Care 134 mg/dl (70-99)
--- NOTE | 2023-06-17 10:15 | W.PN.HOSP.TC ---
Today's Communication/Plan
-
Urgent CT head
Neurology consult
Assessment / Plan
Assessment / Plan
Gen-awake but not alert, not conversing, not following commands
HEENT-NC, AT, anicteric, clear oral mm
Neck-supple
CV-reg, no M, +S1/S2
Lungs-clear B/L
Abd-soft, NT, ND
Ext-no edema
Musculoskeletal-no cyanosis, clubbing
Skin-warm and dry
Acute TME -unknown time of onset. Check urgent CT head. Stroke alert called by nurse. To be taken off dialysis now, discussed with Dr. Parker. Differential diagnosis includes acute stroke versus seizure versus other. Neurology to see. Bedside
glucose 134.
Hypertensive emergency (POA) -resolved. Off nitroglycerin drip. Transfer to telemetry.
Acute hypoxic respiratory insufficiency -requiring 2 L nasal cannula oxygen currently. Wean down as able. Chest x-ray shows significant bilateral pulmonary edema. Pharmacist notes that he has not had his prescriptions filled in several months.
This likely contributed to his hospitalization. However, I did speak with the patient's who mentioned that he has been taking all his medications at home, did not miss any fills of his prescriptions.
Acute on chronic heart failure preserved EF -improving. Will need to remove volume with dialysis. Patient's admits that he has been drinking some extra fluid lately. Maintain fluid and sodium restriction.
ESRD on dialysis -normally gets dialyzed Friday, , Friday. Nephrology consulted. Perhaps he can have a session today if schedule permits.
CAD with history of stenting
DM 2 with hyperglycemia -please update home medication list. Continue sliding scale insulin for now. Glucose 270 this morning. Received 6 mg of IV Decadron in the emergency room for wheezing.
Seizure disorder -continue antiepileptics.
History of stroke with right hemiparesis
Hypothyroidism
Chronic microcytic anemia -likely combination of CKD related anemia, rule out iron deficiency.
PAD -stable.
Secondary hyperparathyroidism
Full code
Updated son at the bedside.
Anticipated Discharge: > 48 hours
Subjective/Interval History
-
Date of Service: June 17, 2023
Patient seen and examined, currently on dialysis. Appears very confused today, not conversing. Staring off into space. Apparently was more awake and eating breakfast earlier this morning according to nurse.
Objective Data
-
Labs:
Laboratory Results
06/17/23
07:33
WBC 9.7
Hgb 9.4 L
Hct 28.1 L
Plt Count 227
Sodium 134 L
Potassium 4.5
Chloride 95 L
Carbon Dioxide 25
BUN 60 H
Creatinine 9.7 H*
Glucose 209 H
Calcium 8.9
Vital Signs:
Vital Signs
Temp Pulse Resp BP Pulse Ox
97.7 F 58 16 137/62 98
06/17/23 08:39 06/17/23 08:39 06/17/23 08:39 06/17/23 08:39 06/17/23 08:39
I&O
06/16/23 06/17/23 06/18/23
06:59 06:59 06:59
Intake Total 780 / 780
Balance 780 / 780
Review of Systems
-
Unable to obtain full review of systems at this time due to: Acuity
--- NOTE | 2023-06-17 10:17 | RR ---
A Rapid Response was called on this patient, please see Rapid Response form.
Dr. Melton bedside to see patient during HD and patient found to be unresponsive. Dr. Melton in touch with Dr. Parker to request bedside consult in anticipation of HD interruption. Rapid response and stroke alert called. Bedside glucose, vital
signs and EKG performed.
--- NOTE | 2023-06-17 10:25 | W.PN.NEPH.HD ---
Assessment
-
pt seen during HD
vitals stable
AVF functions well
pt is unresponsive acutely -stroke alert called hence will stop HD -only received 2hr of HD today
reassess need HD tomorrow
d/w primary, son at bedside
Progress Note - Hemodialysis
-
Date of Service: June 17, 2023
Duration: 2 hours
Potassium Bath: 2
Calcium Bath: 2.5
Opti-Dialyzer: 160
Ultrafiltration: Other (0.5kg)
Blood Flow: 400
Dialysate Flow: 600
Heparin: no
EPO: no
--- NOTE | 2023-06-17 10:58 | CON.NEURO4 ---
Addendum entered and electronically signed by Mikey Bejarano MD 06/17/23 13:23:
Studies reviewed.
I have personally examined the patient. I reviewed and agree with the IT COMMUNICATIONS SPECIALIST's Note.
My addenda:
Minimally arousable, non-interactive. No acute distress.
Speech: Mute.
No tremor. Does withdrawal at times from painful stimuli.
Extra-ocular movements grossly intact.
Facial movements full and symmetric. Hearing unable to discern if intact to normal conversational volume.
Normal UE movements bilaterally.
Neck: full ROM.
Chest: no dyspnea
Heart: no JVD
Ext: (-) Clubbing, (-) Cyanosis, (-) Edema
IMPRESSIONS/RECOMMENDATIONS:
Abrupt onset of encephalopathy
Differential diagnosis includes recurrent seizure, and toxic metabolic encephalopathy as well as hypotensive encephalopathy
There is no clear evidence at this time of stroke based on absence of focal abnormalities as well as a recurrence of symptoms from prior evaluations
Check EEG
Provide levetiracetam 1000 mg IV now
Check CT of head (completed)
Check for potential metabolic encephalopathy
Provide blood pressure goals of 120/80
Restart patient's usual lacosamide 50 mg twice a day
No indication to discontinue patient's usual antiplatelet agents
Continue atorvastatin 80 mg daily
Will continue to follow patient.
Original Note:
Documented by User: Emili Gusman NP 06/17/23 13:09
Consultation - Neurology 4
-
CONSULTING PHYSICIAN: Mikey Bejarano MD
REFERRING PHYSICIAN: Hospitalists/Dr. Melton
DICTATED BY: TIN Esparza
DATE/TIME OF REQUEST: 06/17/23
DATE/TIME OF CONSULTATION: 06/17/23
Reason for Consultation: Stroke Alert
History of Present Illness:
This is a 67-year-old male who has presented to the hospital on 06/16/23 report of dyspnea, cough, and runny nose for several days. Patient is known to our Neurology service from several encounters in the past for acute changes in mental status.
From my previous encounter on 11/14/22:
'This is a 67-year-old male with a PMH significant for ESRD (HD TuThSat), left-sided ischemic thalamic stroke with residual right-sided weakness, seizure disorder, CHF, COPD, HTN, HLD, and IDDM who has presented to the hospital on 11/12/22 with
complaint of shortness of breath. Patient has had several admissions here for the same complaint and has been found to be volume overloaded and have pulmonary edema in the past. On arrival this admission he was treated with NTG infusion, bipap, then
HD. He was improving and set for discharge yesterday 11/13/22 when he was noted to be lethargic and found to have a blood sugar of 40 and was hypothermic. WBC count was notably increased to 17.5 from 8.2 earlier in the day. CT head was obtained and
did not demonstrate any acute findings. CXR was also obtained and demonstrated 'cardiomegaly with increased interstitial markings and a small right pleural effusion. Findings felt to most likely represent interstitial pulmonary edema, with
improvement in radiographic appearance compared to examination of November 12, 2022.' Currently, the patient remains obtunded and nonverbal, prompting Neurology consult due to his history of seizures and stroke. Patient is known to our service from a
previous encounter.
From an encounter with Dr. Hall on 04/07/22:
'Patient is a 66 year old man with history of left-sided ischemic stroke and chronic right sided weakness, epilepsy, ESRD on dialysis admitted for dyspnea has been found to have pleural effusion.� He had COVID and admission for this at [facility]
from 03/26-03/30 had minimal hypoxemia and was able to be weaned from this and steroids discontinued.� He has been admitted here on 04/01.� Has had some slowing and poor responsiveness noted by providers and nurse informs me will sometimes be less
interactive for spans of 20 minutes though not unresponsive during this time and no shaking movements seen.� Patient not able to describe much in terms of his seizure medications or history of seizures
In speaking with patient's nephew and mother over phone, patient has been on seizure medications for about 1-2 years, manifests as all over shaking but has consciousness during this,� and last one happened around 2-3 months ago.� Not clear on how
exactly he got on 2 seizure medications.� Frequency of seizures has improved since the medications have started, has had around 2-3 total seizures.� Family doesn't think he follows with neurologist.� � He did have stroke producing chronic left sided
weakness which occurred in 2009.� Didn't seem any significant intellectual, memory, or cognitive problems since the stroke.� He does use walker at home but otherwise able to dress and bathe and eat on him own. Mood has been okay.� No recent head
trauma.� � No alcohol use.� Family explained that they see in him very worried about recently.� He seems more quiet.
BUN is 60 today, he had dialysis yesterday.� CT head here demonstrates chronic left sided thalamic and internal capsule lacunar strokes.� Brain MRI from 2010 demonstrated chronic left-sided thalamic lacunar stroke.� No fevers this admission and no
overt seizure activity has been seen. Family noted he is off mental baseline.'
Since this previous encounter, there have been no changes made to the patient's seizure medications lacosamide and levetiracetam, and he is taking aspirin 81mg daily.'
This morning (06/17/23) around 0730 patient was noted by nursing staff to be in his usual, conversant state. Hemodialysis was initiated and upon physician rounding at 1005, he was noted to be minimally responsive and a Stroke Alert was activated.
Blood pressure was low, 90's/40's. Patient was laid flat, and became slightly more responsive afterwards, following simple one-step commands but still not providing any verbal response. HD was stopped. CT head was obtained and is negative for any
acute abnormalities. NIHSS is a 16 but he is unable to participate and assessment is inaccurate. He is only receiving levetiracetam 500mg HS. Prevously he was on levetiracetam 500mg BID and lacosamide 50mg BID, it is unclear when this was adjusted.
He is also currently on DAPT with aspirin 81mg and clopidogrel 75mg daily, it is unclear why he is prescribed this, previously he was only on aspirin monotherapy.
Past Medical History: � ESRD on HD, CHF, HTN, HLD, COPD, CAD, hypothyroidism, IDDM, seizure disorder, history thalamic lacunar stroke with right-sided weakness and internal capsule lacunar infarcts, anemia, pneumonia, pleural effusion, ulcerative
colitis, PAD, retinopathy, neuropathy
Surgical History: Cardiac stent, AV fistula left upper extremity, hernia repair
Family History: Reviewed and noncontributory no early history of stroke or [place]
Social History:� Former tobacco. No alcohol or illicit drug use.
Allergies: Latex
Home Medications:� See below.
Review of Symptoms:
Per the HPI. I am unable to obtain a complete review of systems�because of patient's inability to provide history.
Physical Exam:
The patient is afebrile, abdomen is nondistended, breathing is unlabored, skin is warm and dry, no edema. LUE AV fistula.
NIH Stroke Scale:
I performed the NIH stroke scale on the patient on 06/17/23 at 1020. The patient scored 16 points on the NIH stroke scale assessment, which were assigned as follows: See below.
Neurologic Examination:
The patient is obtunded, opens eyes to pain/occasionally loud voice. He is unable to answer questions appropriately, he can follow some one-step commands. Making incomprehensible sounds only. On cranial nerve assessment, pupils are 2 mm bilateral,
round and reactive to light and accommodation. Gaze is midline. MEDARDO EOMS or visual mckinney. There is no facial asymmetry at reset. Hearing is intact bilaterally to normal conversation volume. MEDARDO tongue palate and uvula. Motor strengths are 3/5 left
upper and lower extremities, and 2/5 right upper and lower extremities on medical research [place] scale. MEDARDO drift. No involuntary movement noted. Babinski is absent bilaterally. MEDARDO sensation or DBS. MEDARDO coordination.
Lab Results: See below.
Neuro Imaging:
1. CT Head 06/17/23: No acute intracranial abnormality noted. ASPECTS Score: 10.
Differentials for the patient's presentation include:
1. Acute change in mental status likely due to hypoperfusion or metabolic disturbance.
2. Cannot entirely exclude seizure.
3. Acute stroke possible but less likely.
Patient has the following risk factors for their symptoms: HD, hx seizure, hx stroke, hypotension
IV Tenecteplase/IAT candidacy: Not a candidate due to unclear diagnosis.
Recommendations:
-Provide levetiracetam 1000mg IV x1 now. Would continue levetiracetam 500mg q12hrs.
-Routine EEG ordered/pending.
-If patient does not improve, will consider MRI brain imaging.
-Continue aspirin 81mg daily. Do not see a reason to continue clopidogrel, unclear if it needs to be continued for cardiac purposes.
-Goal normotension.
-LDL goal <70. Lipid panel pending. Continue home atorvastatin 80mg daily.
-Goal normoglycemia, hbA1c is 7.8.
-Checking blood work for metabolic abnormalities.
-PT/OT/ST when able
-DVT prophylaxis
Discussed patient care with: Dr. Bejarano, nursing staff, the patient
NIH Stroke Score
Subsequent NIH Scale
Date of Subsequent NIH Scale: 06/17/23
Time of Subsequent NIH Scale: 10:20
NIH Stroke Score
Level of Consciousness: 2 - Obtunded
LOC Questions: 2-Neither correct
LOC Commands: 2-Performs neither correctly
Best Horizontal Gaze: 0-Normal
Visual Mckinney: 0=Normal, no visual loss
Facial Palsy: 0=Normal, symmetrical
Motor - Right Arm: 2=Partial vs. gravity
Motor - Left Arm: 2=Partial vs. gravity
Motor - Right Le-Partial vs. gravity
Motor - Left Le-Partial vs. gravity
Limb Ataxia: 0-Absent
Sensation: 0-Normal
Best Language: 2-Severe aphasia
Dysarthria: 0-Normal
Extinction and Inattention: 0-No abnormality
Total Score:: 16
Vital Signs and Labs
-
Vital Signs and Labs:
Vital Signs
Temp Pulse Resp BP Pulse Ox
97.4 F 61 20 124/58 99
06/17/23 10:17 06/17/23 10:25 06/17/23 10:17 06/17/23 10:25 06/17/23 10:17
Lab Results
06/17/23 07:33
06/17/23 07:33
Sodium 134 mmol/L (135-145) L 06/17/23 07:33
Potassium 4.5 mmol/L (3.5-5.1) 06/17/23 07:33
BUN 60 mg/dl (9-20) H 06/17/23 07:33
Glucose 209 mg/dl (70-99) H 06/17/23 07:33
Calcium 8.9 mg/dl (8.4-10.2) 06/17/23 07:33
Ccx-Q-Dnrbaedgjhi Pept > 33912 pg/ml 06/16/23 03:47
Medications
-
Active Medications
Generic Name Dose Route Start Last Admin
Trade Name Freq PRN Reason Stop Dose Admin
Acetaminophen 650 mg 06/16/23 07:21
Acetaminophen 325 Mg Tablet PO 07/14/23 07:20
Q4HPRN PRN
mild pain/LLAMAS/temp> 100.4F
Albumin Human 12.5 grams 06/17/23 08:00 06/17/23 09:35
Albumin 12.5 Grams/50 Ml Bag *For Hemodialysis* IV 06/17/23 23:59 12.5 grams
HD-Q1HPRN PRN Administration
sbp<100
Aspirin 81 mg 06/16/23 08:00 06/17/23 12:47
Aspirin 81 Mg (Enteric Coated) Tablet PO 07/14/23 07:59 Not Given
DAILY MAYDA
Clopidogrel Bisulfate 75 mg 06/16/23 10:00 06/17/23 12:48
Clopidogrel 75 Mg Tablet PO 07/14/23 09:59 Not Given
DAILY MAYDA
Dextrose 12.5 grams 06/17/23 02:49
Dextrose 50% (0.5 Grams/Ml) 50 Ml Syringe IV 07/15/23 02:48
[id number] PRN
hypoglycemia
Protocol
Glucagon 1 mg 06/17/23 02:48
Glucagon 1 Mg Vial IM 07/15/23 02:47
PRN PRN
hypoglycemia
Protocol
Hydralazine HCl 5 mg 06/16/23 13:54
Hydralazine 20 Mg/Ml Vial IV 07/14/23 13:53
Q4HPRN PRN
SBP>180
Insulin Glargine 10 units/ 0.1 mls @ 0 mls/hr 06/16/23 22:00 06/16/23 22:29
Device SC 07/14/23 21:59 0.1 mls
HS MAYDA Administration
As Directed
Insulin Aspart 0 units 06/17/23 07:30 06/17/23 12:46
Insulin Aspart Low Resistance 300 Units/3 Ml Pen.Injctr SC 07/15/23 07:29 Not Given
AC MAYDA
Protocol
Levetiracetam 500 mg 06/16/23 22:00 06/16/23 22:28
Levetiracetam 500 Mg Extended-Release Tablet PO 07/14/23 21:59 500 mg
HS MAYDA Administration
Lisinopril 20 mg 06/16/23 08:00 06/17/23 12:49
Lisinopril 20 Mg Tablet PO 07/14/23 07:59 Not Given
DAILY MAYDA
Mannitol 12.5 grams 06/17/23 08:00 06/17/23 09:40
Mannitol 25% (12.5 Grams/50 Ml) Vial IV 06/17/23 23:59 12.5 grams
HD-Q1HPRN PRN Administration
sbp<100
Quetiapine Fumarate 12.5 mg 06/16/23 22:00 06/16/23 22:28
Quetiapine 25 Mg Tablet PO 07/14/23 21:59 12.5 mg
HS MAYDA Administration
Sodium Chloride 0 flush 06/16/23 08:00 06/17/23 11:08
Sodium Chloride 0.9% (Flush) Syringe IV 07/14/23 07:59 2 flush
PER PROTOCOL MAYDA Administration
Home Medications
Medication Instructions Recorded
clopidogrel 75 mg tablet 75 mg PO DAILY Blood clot 05/10/21
prevention/tx
sevelamer HCl 800 mg tablet 1,600 mg PO MEALS Kidney Disease 05/10/21
vitamin B complex-vitamin C-folic 1 tab PO DAILY Supplement ##0 05/10/21
acid 0.8 mg tablet (Nephro-Miranda)
lacosamide 50 mg tablet 50 mg PO BID Seizures 05/22/21
docusate sodium 100 mg capsule 100 mg PO BID Constipation 03/27/22
(Colace)
atorvastatin 80 mg tablet (Lipitor) 80 mg PO DAILY High cholesterol 08/28/22
isosorbide mononitrate 30 mg 30 mg PO DAILY Blood pressure 08/28/22
tablet,extended release 24 hr
levetiracetam 500 mg 500 mg PO HS Seizures 08/28/22
tablet,extended release 24 hr
linaclotide 72 mcg capsule 72 mcg PO DAILYPRN PRN constipation 08/28/22
(Linzess)
mesalamine 400 mg capsule (with 400 mg PO BID Gastrointestinal 08/28/22
delayed release tablets inside) issue
lisinopril 20 mg tablet 20 mg PO DAILY Blood pressure #30 08/29/22
tabs
carvedilol 12.5 mg tablet 12.5 mg PO BID Heart Failure 11/27/22
levothyroxine 25 mcg tablet 75 mcg PO DAILY Thyroid 11/27/22
quetiapine 25 mg tablet (Seroquel) 12.5 mg PO HS Mental Health/Anxiety 02/28/23
acetaminophen 325 mg tablet 325 mg PO DAILYPRN PRN mild pain 04/01/23
(Tylenol)
aspirin 81 mg tablet,delayed 81 mg PO DAILY Blood Clot 04/01/23
release Prevention/Tx
bimatoprost 0.01 % eye drops 1 drp BOTH EYES QPM Eye Condition 04/01/23
(Lumigan)
insulin aspart U-100 100 unit/mL 7 - 14 sliding scale dose SC AC 04/01/23
(3 mL) subcutaneous pen (Novolog Diabetes
FlexPen U-100 Insulin aspart)
insulin glargine 100 unit/mL (3 9 - 17 unit SC HS Diabetes 06/16/23
mL) subcutaneous pen (Lantus
Solostar U-100 Insulin)

Documented by User: Mikey Bejarnao MD 06/17/23 13:12
NIH Stroke Score
NIH Stroke Score
Total Score:: 16
[2023-06-17] MEDS: KEPPRA 1000 MG IV (11:06)
[2023-06-17] MEDS: FLUSH (NSS) 2 FLUSH IV (11:08)
--- NOTE | 2023-06-17 11:09 | PTCARENOTE ---
Patient in room after returning from CT scan. Patient is lethargic, does not follow commands, resists assist with opening eyes for neuro check. Will continue to monitor and assess.
--- NOTE | 2023-06-17 11:14 | PTCARENOTE ---
Patient remains in bed lethargic/nearly unresponsive. Patient does not follow commands, but intermittently turns head to right side and lifts head off pillow with left eye partially open. Call rosas in reach and bed alarm intact.
--- NOTE | 2023-06-17 11:18 | PTCARENOTE ---
Patient now actively moving left leg/foot intermittently. Patient remains lethargic/nearly unresponsive.
--- NOTE | 2023-06-17 11:32 | CM ---
clinical marketing manager reviewed patient's chart and reached out to patient's son Wilfred Pina [phone] to review home set up for patient. Stroke alter called when patient was receiving HD today. Per patient's son patient lives with spouse and son in a
2 story home, with stair glide to 2nd floor, patient requires assist from spouse and son with adl's and uses a walker with ambulation. Patient with ESRD and is on HD outpatient and goes to [facility] in [place] [phone], Fax [phone]
[phone], patient's family transport patient to HD, [facility]. Patient also has [facility] visiting nurses, rifle case repairer will send a referral to [facility].
[facility]
[phone]

Vanessa Wharton
[phone]

Pharmacy: [facility]
PCP: Marcelo Lares
Plan; To follow with patient progress and assist with with discharge planning.
[2023-06-17 11:38] LABS: Glycohemoglobin (HgbA1c) 7.8 % (4.0-5.6)
[2023-06-17 12:34] LABS: Glucose - Point of Care 123 mg/dl (70-99)
[2023-06-17] MEDS: ASPIR LOW (ENTERIC COATED) PO (12:47)
[2023-06-17] MEDS: PLAVIX PO (12:48)
[2023-06-17] MEDS: ZESTRIL PO (12:49)
[2023-06-17 13:40] LABS: HDL Cholesterol 35 mg/dl; LDL Cholesterol, Calculated 24 mg/dl; Total Cholesterol 72 mg/dl (50-199); Triglyceride 68 mg/dl (10-149); Very Low Density Lipoprotein 13 mg/dl (0-30)
--- NOTE | 2023-06-17 14:54 | PTCARENOTE ---
Patient now awake, alert and following commands. Patient verbalizes that he feels 'really good'. Patient requests to eat. Will await speech therapy due to failed water challenge.
[2023-06-17 15:33] LABS: TSH Reflex To Free T4 0.96 uIU/ml (0.47-4.68)
[2023-06-17 16:06] LABS: Folate 19.9 ng/ml (2.76-20); Vitamin B12 907 pg/ml (239-931)
[2023-06-17 16:30] LABS: Glucose - Point of Care 82 mg/dl (70-99)
--- NOTE | 2023-06-17 16:57 | PTOTSP ---
Dysphagia Therapy
Patient presents with signs concerning for WFL-mild oral dysphagia and unspecified pharyngeal dysphagia. Signs concerning for possible aspiration noted as evidenced by delayed coughing which was greatest with thin liquids. Cannot rule out top-down
vs bottom up aspiration at the bedside. Given patient's chronic risk factors for dysphagia (i.e., COPD, CVA with right sided weakness, CHF, cognitive impairment) and acute risk factors (i.e., concern for encephalopathy), recommend objectively
assessment of oral/pharyngeal swallowing physiology to further develop treatment plan.
Recommend:
1. IDDSI Level 6 (Soft and Bite Sized), IDDSI Level 2 (Mildly Thick Liquids)
2. Medications - whole in puree
3. FULL SUPERVISION and ASSISTANCE to self-feed
4. Strategies: small single sips/bites, slow rate
5. Oral care 3-5x daily to reduce risk for complications if aspiration were to occur
6. Video swallow study
[2023-06-17] MEDS: VIMPAT 50 MG PO (20:03)
[2023-06-17 22:40] LABS: Glucose - Point of Care 75 mg/dl (70-99)
[2023-06-17] MEDS: LANTUS 0.100000000000000006 UNITS SC (22:52)
[2023-06-17] MEDS: SEROQUEL 12.5 MG PO (22:52)
[2023-06-17] MEDS: KEPPRA XR (EXTENDED RELEASE) 500 MG PO (22:52)
[2023-06-18 03:17] VITALS: BP 136/53
--- NOTE | 2023-06-18 04:29 | DOWNTIME ---
There was a [employer] Downtime on 06/18/2023 from 0111 to 06/18/2023 at 0405. Downtime documentation of patient's care, including medication administrations, has been reconciled in the electronic record per guidelines. Refer to the
patient's paper chart under the miscellaneous tab to see printed paper medication records and downtime forms.
[2023-06-18 06:00] VITALS: BMI 18.4
[2023-06-18 07:30] VITALS: BP 156/56
[2023-06-18 08:00] LABS: Glucose - Point of Care 54 mg/dl (70-99)
[2023-06-18] MEDS: ZESTRIL 20 MG PO (08:09)
[2023-06-18] MEDS: ASPIR LOW (ENTERIC COATED) 81 MG PO (08:09)
[2023-06-18] MEDS: VIMPAT 50 MG PO (08:09)
[2023-06-18] MEDS: PLAVIX 75 MG PO (08:09)
--- NOTE | 2023-06-18 08:27 | W.PN.HOSP.TC ---
Addendum entered and electronically signed by Jose Raul Melton DO 06/18/23 12:11:
underweight
Original Note:
Today's Communication/Plan
-
EEG
Video swallowing study
Stop Lantus
Iron panel
Assessment / Plan
Assessment / Plan
Gen-awake but not alert, not conversing, not following commands
HEENT-NC, AT, anicteric, clear oral mm
Neck-supple
CV-reg, no M, +S1/S2
Lungs-clear B/L
Abd-soft, NT, ND
Ext-no edema
Musculoskeletal-no cyanosis, clubbing
Skin-warm and dry
Acute TME -suspect due to seizures. EEG pending. Mental status back to baseline.
Hypertensive emergency (POA) -resolved.
Acute hypoxic respiratory insufficiency -requiring 2 L nasal cannula oxygen currently. Wean down as able. Chest x-ray shows significant bilateral pulmonary edema. Pharmacist notes that he has not had his prescriptions filled in several months.
This likely contributed to his hospitalization. However, I did speak with the patient's who mentioned that he has been taking all his medications at home, did not miss any fills of his prescriptions.
Acute on chronic heart failure preserved EF -improving. Will need to remove volume with dialysis. Patient's admits that he has been drinking some extra fluid lately. Maintain fluid and sodium restriction. Weight is down 3 kg so far.
Dysphagia -speech therapy following. Awaiting video swallowing study.
ESRD on dialysis -normally gets dialyzed Friday, , Friday.
CAD with history of stenting
DM 2 with hyperglycemia/hypoglycemia -glucose down to 54 this morning, 75 last night. Will stop Lantus. Hemoglobin A1c 7.8% but may not be reliable in the setting of chronic anemia.
Seizure disorder -continue antiepileptics. Appreciate neurology input.
History of stroke with right hemiparesis
Hypothyroidism
Chronic microcytic anemia -likely combination of CKD related anemia, rule out iron deficiency. Check iron panel. Ferritin elevated, likely acute phase reactant.
PAD -stable.
Secondary hyperparathyroidism
Full code
Dispo -SNF versus home with VN.
Anticipated Discharge: Within 24 hours
Subjective/Interval History
-
Date of Service: June 18, 2023
Patient seen and examined. No complaints. More awake today.
Objective Data
-
Labs:
Laboratory Results
06/18/23
07:16
Sodium Pending
Potassium Pending
Chloride Pending
Carbon Dioxide Pending
BUN Pending
Creatinine Pending
Glucose Pending
Calcium Pending
Vital Signs:
Vital Signs
Temp Pulse Resp BP Pulse Ox
97.7 F 60 18 156/56 100
06/18/23 07:30 06/18/23 08:09 06/18/23 07:30 06/18/23 08:09 06/18/23 07:30
I&O
06/17/23 06/18/23 06/19/23
06:59 06:59 06:59
Intake Total 780 / 780 120 / 120
Balance 780 / 780 120 / 120
Review of Systems
-
History Source: Patient
All other systems: Reviewed and negative
[2023-06-18 08:49] LABS: Glucose - Point of Care 107 mg/dl (70-99)
[2023-06-18 09:12] LABS: Blood Urea Nitrogen 43 mg/dl (9-20); Calcium 9.4 mg/dl (8.4-10.2); Carbon Dioxide 28 mmol/L (22-30); Chloride 93 mmol/L (98-107); Estimated Creatinine Clearance 7 ml/min; Glucose 52 mg/dl (70-99); Iron 64 ug/dl (49-181); Percent Saturation 34 % (20-50); Potassium 4.6 mmol/L (3.5-5.1); Sodium 134 mmol/L (135-145); Total Iron Binding Capacity 186 ug/dl (261-462); eGFR 7.47
[2023-06-18 11:11] LABS: Glucose - Point of Care 183 mg/dl (70-99)
[2023-06-18 11:25] VITALS: BP 124/62; BP 137/54
--- NOTE | 2023-06-18 12:03 | PN.CDI ---
CDI
- -
CDI:
Physician Documentation Request
Admit Date: 06/16/23 06:07
Dear Doctor Geronimo,
Please review the following and provide your response in the progress notes.
Clinical Indicators:
Height: 5'4
Weight: 107lbs
BMI: 18.4
- Patient admit with fluid overload
- Weight decrease of 6lbs with HD
If possible, please provide an associated diagnosis related to the abnormal BMI, such as:
Underweight
Cachectic
BMI is not significant
Other
Use of terms such as suspected, likely, concern for, or probable (associated with a specific diagnosis that is being evaluated, monitored, or treated as if it exists) are acceptable and can be coded in the inpatient setting, when documented at the
time of discharge.
Thank you,
Mariposa Angeles RN
CDI Specialist
Please use your independent medical judgment in providing your response.
--- NOTE | 2023-06-18 12:18 | PTOTSP ---
Video Swallow Examination
Patient presents with mild oral and at least moderate-severe pharyngeal dysphagia. He silently aspirated moderately thick liquids and 1 out of 2 trials of pudding thick liquids and could not be cued to cough or follow any strategies. No aspiration
was observed with thin or mildly thick liquids. However, patient has had reports of coughing with liquids prior to this evaluation. Suspect dysphagia is acute on chronic from TME and comorbidities (i.e., COPD, CVA with right sided weakness, CHF,
cognitive impairment).
Further goals of care discussion regarding nutrition/hydration warranted. Patient has a cognitive impairment and had agitation/decreased insight at time of this study which impacted his ability to fully participate in these type of conversations.
Recommend:
1. Thin Liquids with single cup sips and direct supervision. Discontinue if s/s of aspiration observed.
2. Consider temporary non-oral means as meeting nutrition with liquids alone may be difficult
3. Medications - with single sips of thin liquid water if non-oral means are not available
4. Oral care 3-5x daily to reduce risk for aspiration of oral bacteria
5. Continued dysphagia tx for patient/family education, instruction in compensations, dysphagia exercises, and to determine timing of repeat swallow study.
[2023-06-18] MEDS: NSS 1000 IV (13:34)
--- NOTE | 2023-06-18 13:59 | CM ---
Chart reviewed and patient to return to home when stable, patient has [facility] visiting nurses and outpatient HD.
Plan; Home when stable.
[facility]
[phone]

Vanessa Wharton
[phone]
--- NOTE | 2023-06-18 14:43 | W.PN.NEPH.PH ---
Today's Communication / Plan
-
- patient wants to go home, extremely confused, refusing HD
- plan for HD tomorrow
Assessment/Plan
-
IMP:
HTN emergency
Acute and recurrent hypoxemic respiratory failure
History recurrent acute respiratory failure secondary to fluid overload +/- accelerated BP
Fluid overload
ESRD TTS [place]
Progressive cerebrovascular disease (vascular dementia?)
Known diastolic dysfunction with chronic fluid overload though EF 50%
History right pleural effusion
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
Left upper arm AV graft
Hypertension, multidrug suboptimally controlled
CAD with prior stenting (LVEF 50%)
PAD
Anemia of CKD
Secondary hyperparathyroidism on vitamin D analog
Seizure disorder
Failure to thrive
Cognitive decline
History of stroke with right-sided hemiparesis.
Sigmoid colitis 2018
COVID-15 April 2022
Former smoker
Chronic fluid overload
Recurrent metabolic encephalopathy
Depression
Hyperphosphatemia
SHPTH
Plan:
Multiple admits for hypervolemia, presented for same
Plan for HD tomorrow
Had to end HD early yesterday due to altered mentation
previously extra UF resulted in profound hypotension
He is confused from baseline-w/u per primary
cont home meds
pt should strictly comply with renal diet and FR 33ounces/day
-
-
Date of Service: June 18, 2023
CC / HPI / ROS
-
Chief Complaint:
ESRD on H D
History of Present Illness:
AMS
ESRD
volume overload
Review of Systems:
on NC 3L
Labs
-
Labs:
WBC 9.7 10^3/uL (4.8-10.8) 06/17/23 07:33
RBC 3.71 10^6/uL (4.70-6.10) L 06/17/23 07:33
Hgb 9.4 g/dL (13.0-18.0) L 06/17/23 07:33
Hct 28.1 % (39.0-52.0) L 06/17/23 07:33
Plt Count 227 10^3/uL (130-400) 06/17/23 07:33
Sodium 134 mmol/L (135-145) L 06/18/23 07:16
Potassium 4.6 mmol/L (3.5-5.1) 06/18/23 07:16
Chloride 93 mmol/L (98-107) L 06/18/23 07:16
Carbon Dioxide 28 mmol/L (22-30) 06/18/23 07:16
BUN 43 mg/dl (9-20) H 06/18/23 07:16
Creatinine 7.4 mg/dL (0.7-1.3) H* 06/18/23 07:16
eGFR 7.47 06/18/23 07:16
Glucose 52 mg/dl (70-99) L* 06/18/23 07:16
Calcium 9.4 mg/dl (8.4-10.2) 06/18/23 07:16
Ixh-N-Ifzjoejcmdv Pept > 83040 pg/ml 06/16/23 03:47
Albumin 4.3 g/dl (3.5-5.0) 06/16/23 03:47
Physical Exam
-
Vital Signs:
Vital Signs
Temp Pulse Resp BP Pulse Ox
97.8 F 69 17 137/54 100
06/18/23 11:25 06/18/23 11:25 06/18/23 11:25 06/18/23 11:25 06/18/23 11:25
Cardiovascular:: Regular rate and rhythm
Respiratory:: Bilateral: CTA
Lung Excursion:: Normal
Abdomen:: Nontender and Soft
Bowel Sounds:: Normal
Extremity Edema:: +1: Bilateral:
Arreguin Catheter: No
[2023-06-18 15:35] VITALS: BP 160/87
[2023-06-18 16:58] LABS: Glucose - Point of Care 78 mg/dl (70-99)
--- NOTE | 2023-06-18 22:30 | PTCARENOTE ---
Patient uncooperative, agitated, refusing PO meds. [employer] notified. PO keppra and vimpat changed to IV. Family at bedside.
--- NOTE | 2023-06-18 22:36 | W.PN.UPDATE ---
Update Note
Progress Note Update
Patient refused to take his oral meds, family at bedside. and son over the phone helped to communicate with the patient as he does not speak Qatari. Patient continue to refuse oral meds. One time dose of Keppra IV and Vimpat IV ordered to cover his
regular oral dose that was ordered for tonight.
[2023-06-18] MEDS: SEROQUEL PO (22:43)
[2023-06-18] MEDS: VIMPAT 50 MG IV (22:50)
[2023-06-18] MEDS: KEPPRA 500 MG IV (22:51)
[2023-06-18 23:00] VITALS: BP 130/81
[2023-06-18 23:22] LABS: Glucose - Point of Care 89 mg/dl (70-99)
[2023-06-19] VITALS (7 sets, daily range): BP systolic 119–175; BP diastolic 54–79; PULSE 70; BMI 18.8
[2023-06-19] MEDS: NOVOLOG FLEXPEN-LOW RESISTANCE SC ×4 (00:24→19:05)
[2023-06-19] MEDS: NSS 1000 IV (04:34)
[2023-06-19 05:50] LABS: Glucose - Point of Care 91 mg/dl (70-99)
[2023-06-19 08:32] LABS: Carbon Dioxide 20 mmol/L (22-30); Chloride 99 mmol/L (98-107); Potassium 4.9 mmol/L (3.5-5.1); Sodium 134 mmol/L (135-145)
--- NOTE | 2023-06-19 09:19 | W.PN.HOSP.TC ---
Addendum entered and electronically signed by Jose Raul Melton DO 06/19/23 10:16:
Hold Plavix for upcoming PEG tube. Discussed with GI.
Original Note:
Today's Communication/Plan
-
GI consult
Assessment / Plan
Assessment / Plan
Gen-awake, NAD
HEENT-NC, AT, anicteric, clear oral mm
Neck-supple
CV-reg, no M, +S1/S2
Lungs-clear B/L
Abd-soft, NT, ND
Ext-no edema
Musculoskeletal-no cyanosis, clubbing
Skin-warm and dry
Acute TME -suspect due to seizures. EEG pending. Mental status back to baseline.
Hypertensive emergency (POA) -resolved.
Acute hypoxic respiratory insufficiency -suspect etiology is most likely related to aspiration pneumonitis. Component of pulmonary edema due to heart failure as well.
Acute on chronic heart failure preserved EF -improving. Will need to remove volume with dialysis. Patient's admits that he has been drinking some extra fluid lately. Maintain fluid and sodium restriction. Weight 49 kg today. Unclear how
reliable the weights are.
Severe dysphagia -speech therapy following. Not safe to feed by mouth. Will need a PEG tube. Long discussion with patient's son on the phone and he agrees with moving forward. GI consulted. Son discussed with patient's as well.
ESRD on dialysis -normally gets dialyzed Friday, , Friday.
CAD with history of stenting
DM 2 with hyperglycemia/hypoglycemia -glucose down to 91 this morning. Lantus discontinued. Hemoglobin A1c 7.8% but may not be reliable in the setting of chronic anemia.
Seizure disorder -continue antiepileptics. Appreciate neurology input.
History of stroke with right hemiparesis
Hypothyroidism
Chronic microcytic anemia -likely CKD related anemia. Percentage iron saturation normal. Elevated ferritin likely acute phase reactant. B12 and folic acid normal.
PAD -stable.
Secondary hyperparathyroidism
Underweight
Full code
Dispo -SNF versus home with VN.
Anticipated Discharge: > 48 hours
Subjective/Interval History
-
Date of Service: June 19, 2023
Patient seen and examined. On dialysis currently. No complaints.
Objective Data
-
Labs:
Laboratory Results
06/19/23
08:14
Sodium 134 L
Potassium 4.9
Chloride 99
Carbon Dioxide 20 L
Vital Signs:
Vital Signs
Temp Pulse Resp BP Pulse Ox
98.0 F 80 18 119/76 98
06/19/23 07:45 06/19/23 07:45 06/19/23 07:45 06/19/23 07:45 06/19/23 07:45
I&O
06/18/23 06/19/23 06/20/23
06:59 06:59 06:59
Intake Total 120 / 120 720 / 720
Balance 120 / 120 720 / 720
Review of Systems
-
History Source: Patient
All other systems: Reviewed and negative
--- NOTE | 2023-06-19 09:51 | CON.GI ---
Addendum entered and electronically signed by Hannah Dimas Do, MD 06/19/23 14:34:
I saw and examined the patient.
The TEACHER OF THE DEAF[employer] HEARING's note was reviewed and I agree with the note.
Comment: Silvana is a 67yo M with h/o ESRD on HD, CAD s/p stents, CHF, CVA on UC on mesalamine who was admitted for SOB with aspiration PNA and CHF exacerbation with seizures. GI consulted for PEG placement. Patient is not able to provide
history. Vitals stable AF confused responsive but not coherent. NTTP, no surgical scars seen in diaper. Labs reviewed none since 06/17
Impression
- Altered mental status
- Failed swallow study due to aspiration
- CHF
- aspiration PNA/pneumonitis
- ESRD on HD
- CAD s/p stent
- H/o UC
Recommendations
- Hold Plavix for planned PEG after washout out on Friday 06/23
- Family and pt refuse DHT given agitation and restraints currently
- C/w IVF and NPO
- Ancef search engine optimization strategist to be given 30mins prior to PEG placement
GI will reassess on Friday prior to planned PEG for Friday. For now will follow peripherally. Please call for questions
Original Note:
Consultation
-
Date/Time Consultation Requested: 06/19/23 0900
Date/Time Consultation Performed: 06/19/23 0950
Requesting Provider: Jose Raul Melton DO
Performing Provider: TIN Awan, Hannah Valle MD
Reason for Consultation: peg evaluation
Medical History
Chief Complaint / HPI
Chief Complaint: dysphagia
History of Present Illness:
Pt is a 67yo with multiple medical issues, CAD with multiple stents on chronic Plavix , CHF, CVA, ulcerative colitis (2018 with mesalamine use then lost for follow up), DM type 2, hypothyroidism, chronic anemia, PAD, ESRD on HD presents to with
shortness of breath with hypoxemia with concern for silent aspiration and aspiration pneumonitis, CHF with volume overload, seizure with acute TME. Pt has been seen by speech for concern for dysphagia and noted with mild oral and moderate to
severe pharyngeal dysphagia with silent aspiration of moderate thick liquids. He was recommended thin liquids with supervision and consider temporary non oral meals to meet nutritional needs as patient has refused some oral meds during admission.
Pt with some confusion and language barrier but in review with , son, and dialysis nursing staff patient noted with some coughing eating. He has had wt loss but some gain with overload on admission. family denies GERD, nausea, vomiting,
abdominal pain, or rectal bleeding. Last flex sig 2018 with concern for ulcerative colitis but was only on Mesalamine for short time then lost in follow up.
�
�
Past Medical History
Past Medical History: CAD (with prior stent ), CHF, CVA (with dysphagia), HTN, Hypercholesterolemia, Hypothyroidism, NIDDM, Renal Failure (ESRD on DH), Seizures and Other (anemia, PAD, hyperparathyroidism, ulcerative colitis in 2018 with short
course mesalamine then lost in follow up)
Social History
Tobacco: Former Smoker
Alcohol: None
Drug: None
Personal:
Living: With Family
Employment: Retired
Family History
Family History: Other (no family hx colon CA, polyp or IBD)
Allergies / Home Medications
Allergy/AdvReac Type Severity Reaction Status Date / Time
heparin Allergy pt refuses Verified 04/01/23 15:28
d/t
sabianism
reasons
latex Allergy Itching Verified 04/01/23 06:22
pork derived (porcine) Allergy sabianism Verified 04/01/23 06:22
reasons
Medication Instructions Recorded
clopidogrel 75 mg tablet 75 mg PO DAILY Blood clot 05/10/21
prevention/tx
sevelamer HCl 800 mg tablet 1,600 mg PO MEALS Kidney Disease 05/10/21
vitamin B complex-vitamin C-folic 1 tab PO DAILY Supplement ##0 05/10/21
acid 0.8 mg tablet (Nephro-Miranda)
lacosamide 50 mg tablet 50 mg PO BID Seizures 05/22/21
docusate sodium 100 mg capsule 100 mg PO BID Constipation 03/27/22
(Colace)
atorvastatin 80 mg tablet (Lipitor) 80 mg PO DAILY High cholesterol 08/28/22
isosorbide mononitrate 30 mg 30 mg PO DAILY Blood pressure 08/28/22
tablet,extended release 24 hr
levetiracetam 500 mg 500 mg PO HS Seizures 08/28/22
tablet,extended release 24 hr
linaclotide 72 mcg capsule 72 mcg PO DAILYPRN PRN constipation 08/28/22
(Linzess)
mesalamine 400 mg capsule (with 400 mg PO BID Gastrointestinal 08/28/22
delayed release tablets inside) issue
lisinopril 20 mg tablet 20 mg PO DAILY Blood pressure #30 08/29/22
tabs
carvedilol 12.5 mg tablet 12.5 mg PO BID Heart Failure 11/27/22
levothyroxine 25 mcg tablet 75 mcg PO DAILY Thyroid 11/27/22
quetiapine 25 mg tablet (Seroquel) 12.5 mg PO HS Mental Health/Anxiety 02/28/23
acetaminophen 325 mg tablet 325 mg PO DAILYPRN PRN mild pain 04/01/23
(Tylenol)
aspirin 81 mg tablet,delayed 81 mg PO DAILY Blood Clot 04/01/23
release Prevention/Tx
bimatoprost 0.01 % eye drops 1 drp BOTH EYES QPM Eye Condition 04/01/23
(Lumigan)
insulin aspart U-100 100 unit/mL 7 - 14 sliding scale dose SC AC 04/01/23
(3 mL) subcutaneous pen (Novolog Diabetes
FlexPen U-100 Insulin aspart)
insulin glargine 100 unit/mL (3 9 - 17 unit SC HS Diabetes 06/16/23
mL) subcutaneous pen (Lantus
Solostar U-100 Insulin)
Review of Systems
-
History Source: Patient
Constitutional: Reports Weight Loss and Fatigue
EENT: Reports No Symptoms
Respiratory: Reports No Symptoms
Abdomen/GI: Reports Constipated
: Reports Other (chronic HD)
Musculoskeletal: Reports Other (weakness, walker vs 1-2 assist for mobility )
Skin: Reports No Symptoms
Neurological: Reports Weakness
Endocrine: Reports No Symptoms
Hematologic/Lymphatic: Reports No Symptoms
Vital Signs
Temp Pulse Resp BP Pulse Ox
98.0 F 80 18 119/76 98
06/19/23 07:45 06/19/23 07:45 06/19/23 07:45 06/19/23 07:45 06/19/23 07:45
Physical Exam
Exam
General: Other (thin appearing with some language barrier and some confusion per family )
HEENT: Normocephalic and Anicteric
Respiratory: Clear
Cardiac: Regular Rhythm
GI: Soft, Non Distended and Tender
Musculoskeletal: No Clubbing and No Cyanosis
Skin: Warm and Dry
Neuro: Other (sleepy with dialysis )
Psych: Calm
Results
WBC 9.7 10^3/uL (4.8-10.8) 06/17/23 07:33
Hgb 9.4 g/dL (13.0-18.0) L 06/17/23 07:33
Hct 28.1 % (39.0-52.0) L 06/17/23 07:33
MCV 75.7 fL (80.0-94.0) L 06/17/23 07:33
Plt Count 227 10^3/uL (130-400) 06/17/23 07:33
Absolute Neuts (auto) 6.0 10^3/uL (1.4-6.5) 06/16/23 03:47
Sodium 134 mmol/L (135-145) L 06/19/23 08:14
Potassium 4.9 mmol/L (3.5-5.1) 06/19/23 08:14
Chloride 99 mmol/L (98-107) 06/19/23 08:14
Carbon Dioxide 20 mmol/L (22-30) L 06/19/23 08:14
BUN 43 mg/dl (9-20) H 06/18/23 07:16
Creatinine 7.4 mg/dL (0.7-1.3) H* 06/18/23 07:16
Calcium 9.4 mg/dl (8.4-10.2) 06/18/23 07:16
Total Bilirubin 1.0 mg/dl (0.2-1.3) 06/16/23 03:47
AST 23 U/L (17-59) 06/16/23 03:47
ALT 15 U/L (0-50) 06/16/23 03:47
Alkaline Phosphatase 148 U/L (38-126) H 06/16/23 03:47
Diagnostic Image Results:
06/17 HCT-No acute intracranial abnormality noted.
06/16 CXR
1. � MODERATE to SEVERE ACUTE INTERSTITIAL and ALVEOLAR CARDIOGENIC PULMONARY EDEMA.
2. � Small bilateral pleural effusions.
3. � Mild to moderate left to right mediastinal shift suggesting volume loss in the right lung (probably secondary to partial right lower lobe atelectasis).
4. � Severe calcific atherosclerotic plaque in the coronary arteries and thoracic aorta.
Prior GI Procedures:
flex si Bola William MD �� - Diffuse severe inflammation was found in the rectum,
�� � � � � � � � � � in the recto-sigmoid colon, in the sigmoid colon and in
�� � � � � � � � � � the descending colon secondary to colitis. Biopsied.
�� � � � � � � � � � Differential includes infectious vs. ischemic vs. C.
�� � � � � � � � � � diff colitis. Recheck stool cultures. Continue
�� � � � � � � � � � antibiotics.
�� � � � � � � � � � Consider MRA vs. CTA.
Assessment / Plan
-
Pt is a 67yo with multiple medical issues, CAD with multiple stents on chronic Plavix , CHF, CVA, ulcerative colitis (2018 with mesalamine use then lost for follow up), DM type 2, hypothyroidism, chronic anemia, PAD, ESRD on HD presents to with
shortness of breath with hypoxemia with concern for silent aspiration and aspiration pneumonitis, CHF with volume overload, seizure with acute TME. Pt has been seen by speech for concern for dysphagia and noted with mild oral and moderate to
severe pharyngeal dysphagia with silent aspiration of moderate thick liquids. He was recommended thin liquids with supervision and consider temporary non oral meals to meet nutritional needs as patient has refused some oral meds during admission.
-dysphagia with concern for aspiration pneumonitis on admission with volume overload
-seizure/acute TME
-wt loss failure to thrive
-CAD with prior stents on chronic Plavix
-chronic anemia
-constipation
other medical problems:
-CHF
-ulcerative colitis on sig 2017 short course of mesalamine then lost in follow up
-DM type 2
-hypothyroidism
-anemia
-PAD
-ESRD on HD
PLAN:
pt with concern for moderate to severe pharyngeal dysphagia with aspiration and wt loss consider alternative nutrition
pt and family agreeable to peg will want to review further when son present over weekend
reviewed with Dr. Melton for Plavix hold-- last dose 06/18 AM
for speech reeval to see if ok for any oral diet next few days-- per family high risk to pull out DHT
some constipation last stool 06/16 will give Dulcolax today then PRN
cont medical management for fluid overload per renal and hospitalist
will follow
-
-
Thank you for consultation and allowing me to participate in the patient's care. Please call the search engine optimization strategist GI physician during the after hours with any questions or concerns.
[2023-06-19] MEDS: PLAVIX PO (10:01)
--- NOTE | 2023-06-19 10:23 | CM ---
Addendum entered by Kim Alexander 06/19/23 12:53:
Per patient's son plan would be for patient to return to home when stable, with visiting nurses from [facility], patient uses [facility] [phone] for transportation. manager biologics spoke with Juan at [employer] and she stated that patient could use w/c
transport to HD through [facility].
Original Note:
manager biologics reviewed patient's chart and met with patient and spouse this am, and left message for patient's son, Wilfred [phone]. Patient is for possible peg placement, patient is currently requiring HD at [facility] in [place], and came from
home with [facility] visiting nurses family were transporting patient to HD. Patient may need placement after peg placement and message left for patient's son to discuss.
Plan; To follow up with family on possible discharge planning needs.
[2023-06-19 10:43] LABS: Glucose - Point of Care 94 mg/dl (70-99)
[2023-06-19] MEDS: ASPIR LOW (ENTERIC COATED) PO (12:31)
[2023-06-19] MEDS: ZESTRIL PO (12:32)
[2023-06-19] MEDS: VIMPAT PO (12:32)
[2023-06-19 12:37] LABS: Glucose - Point of Care 78 mg/dl (70-99)
[2023-06-19] MEDS: DULCOLAX 10 MG RECTAL (12:59)
[2023-06-19] MEDS: ASPIRIN 300 MG RECTAL (12:59)
[2023-06-19] MEDS: D5/0.9% SODIUM CHLORIDE 1000 IV (12:59)
[2023-06-19] MEDS: VIMPAT 50 MG IV ×2 (12:59→23:20)
[2023-06-19] MEDS: OFIRMEV 100 IV (13:14)
--- NOTE | 2023-06-19 14:02 | W.PN.NEPH.HD ---
Assessment
-
resting on HD
bp stable
Progress Note - Hemodialysis
-
Date of Service: June 19, 2023
Duration: 30 minutes and 3 hours
Potassium Bath: 3
Calcium Bath: 2.5
Opti-Dialyzer: 160
Ultrafiltration: Other
Blood Flow: 400
Dialysate Flow: 600
[2023-06-19] MEDS: ANCEF 10 IV (15:08)
[2023-06-19 18:55] LABS: Glucose - Point of Care 163 mg/dl (70-99)
[2023-06-19] MEDS: KEPPRA 500 MG IV (21:06)
[2023-06-20 00:23] LABS: Glucose - Point of Care 158 mg/dl (70-99)
[2023-06-20] MEDS: NOVOLOG FLEXPEN-LOW RESISTANCE 1 UNITS SC ×3 (00:28→18:00)
[2023-06-20 03:30] VITALS: BP 137/49
[2023-06-20] MEDS: D5/0.9% SODIUM CHLORIDE 1000 IV ×2 (03:56→19:23)
[2023-06-20 05:54] LABS: Glucose - Point of Care 200 mg/dl (70-99)
[2023-06-20 06:00] VITALS: BMI 19.2
[2023-06-20] MEDS: NOVOLOG FLEXPEN-LOW RESISTANCE 2 UNITS SC (06:01)
[2023-06-20 08:28] VITALS: BP 132/56
--- NOTE | 2023-06-20 09:42 | W.PN.HOSP.TC ---
Today's Communication/Plan
-
Await PEG tube on Friday
Continue IV fluids
Assessment / Plan
Assessment / Plan
Gen-awake, NAD
HEENT-NC, AT, anicteric, clear oral mm
Neck-supple
CV-reg, no M, +S1/S2
Lungs-clear B/L
Abd-soft, NT, ND
Ext-no edema
Musculoskeletal-no cyanosis, clubbing
Skin-warm and dry
Acute TME -suspect due to seizures. EEG not done, neurology feels that he no longer needs it. Mental status back to baseline.
Hypertensive emergency (POA) -resolved.
Acute hypoxic respiratory insufficiency -suspect etiology is most likely related to aspiration pneumonitis. Component of pulmonary edema due to heart failure as well.
Acute on chronic heart failure preserved EF -improving. Will need to remove volume with dialysis. Patient's admits that he has been drinking some extra fluid lately. Maintain fluid and sodium restriction.
Severe dysphagia -speech therapy following. Not safe to feed by mouth. Will need a PEG tube, GI plans to place on Friday after Plavix washout. Family and patient refused Dobbhoff tube placement.
ESRD on dialysis -normally gets dialyzed Friday, , Friday.
CAD with history of stenting
DM 2 with hyperglycemia/hypoglycemia -glucose down to 91 this morning. Lantus discontinued. Hemoglobin A1c 7.8% but may not be reliable in the setting of chronic anemia.
Seizure disorder -continue antiepileptics. Appreciate neurology input.
History of stroke with right hemiparesis
Hypothyroidism
Chronic microcytic anemia -likely CKD related anemia. Percentage iron saturation normal. Elevated ferritin likely acute phase reactant. B12 and folic acid normal.
PAD -stable.
Secondary hyperparathyroidism
Underweight
Full code
Dispo -SNF versus home with VN.
Anticipated Discharge: > 48 hours
Subjective/Interval History
-
Date of Service: June 20, 2023
Patient seen and examined. No complaints.
Objective Data
-
Vital Signs:
Vital Signs
Temp Pulse Resp BP Pulse Ox
97.4 F 65 18 132/56 98
06/20/23 08:28 06/20/23 08:28 06/20/23 08:28 06/20/23 08:28 06/20/23 08:28
I&O
06/19/23 06/20/23 06/21/23
06:59 06:59 06:59
Intake Total 720 / 720 560 / 560
Output Total 50 / 50
Balance 720 / 720 510 / 510
Review of Systems
-
History Source: Patient
All other systems: Reviewed and negative
[2023-06-20 11:30] VITALS: BP 156/58
[2023-06-20] MEDS: ASPIRIN 300 MG RECTAL (11:31)
[2023-06-20 11:52] LABS: Glucose - Point of Care 176 mg/dl (70-99)
[2023-06-20] MEDS: VIMPAT 50 MG IV (12:17)
[2023-06-20 12:29] LABS: Glucose - Point of Care 189 mg/dl (70-99)
--- NOTE | 2023-06-20 12:56 | CM ---
prototype engineer manager reviewed patient's chart and per updated notes patient is for possible peg tube placement on Friday per notes, director case did reach out to [facility] to follow up with tube feeds. Patient with ESRD on HD at [facility] in [place],
patient is also current with [facility] visiting nurses.
[facility]
[phone]

Vanessa Wharton
[phone]

Plan; To follow with patient progress and assist with discharge planning needs.
--- NOTE | 2023-06-20 15:37 | W.PN.NEPH.PH ---
Today's Communication / Plan
-
HD tomorrow
Assessment/Plan
-
IMP:
HTN emergency
Acute and recurrent hypoxemic respiratory failure
History recurrent acute respiratory failure secondary to fluid overload +/- accelerated BP
Fluid overload
ESRD TTS [place]
Progressive cerebrovascular disease (vascular dementia?)
Known diastolic dysfunction with chronic fluid overload though EF 50%
History right pleural effusion
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
Left upper arm AV graft
Hypertension, multidrug suboptimally controlled
CAD with prior stenting (LVEF 50%)
PAD
Anemia of CKD
Secondary hyperparathyroidism on vitamin D analog
Seizure disorder
Failure to thrive
Cognitive decline
History of stroke with right-sided hemiparesis.
Sigmoid colitis 2018
COVID-15 April 2022
Former smoker
Chronic fluid overload
Recurrent metabolic encephalopathy
Depression
Hyperphosphatemia
SHPTH
Plan:
Multiple admits for hypervolemia, presented for same
Plan for HD tomorrow per schedule
previously extra UF resulted in profound hypotension cautious with UF
He is confused from baseline-w/u per primary
plan of PEG on Friday
on gentle IVF for NPO
-
-
Date of Service: June 20, 2023
CC / HPI / ROS
-
Chief Complaint:
ESRD on H D
History of Present Illness:
remains NPO on IVF
no fever, confused form baseline
Review of Systems:
offers no complaints and wants to go home
confused
Labs
-
Labs:
WBC 9.7 10^3/uL (4.8-10.8) 06/17/23 07:33
RBC 3.71 10^6/uL (4.70-6.10) L 06/17/23 07:33
Hgb 9.4 g/dL (13.0-18.0) L 06/17/23 07:33
Hct 28.1 % (39.0-52.0) L 06/17/23 07:33
Plt Count 227 10^3/uL (130-400) 06/17/23 07:33
Sodium 134 mmol/L (135-145) L 06/19/23 08:14
Potassium 4.9 mmol/L (3.5-5.1) 06/19/23 08:14
Chloride 99 mmol/L (98-107) 06/19/23 08:14
Carbon Dioxide 20 mmol/L (22-30) L 06/19/23 08:14
BUN 43 mg/dl (9-20) H 06/18/23 07:16
Creatinine 7.4 mg/dL (0.7-1.3) H* 06/18/23 07:16
eGFR 7.47 06/18/23 07:16
Glucose 52 mg/dl (70-99) L* 06/18/23 07:16
Calcium 9.4 mg/dl (8.4-10.2) 06/18/23 07:16
Tdw-V-Hnimouwqhgw Pept > 30387 pg/ml 06/16/23 03:47
Albumin 4.3 g/dl (3.5-5.0) 06/16/23 03:47
Physical Exam
-
Vital Signs:
Vital Signs
Temp Pulse Resp BP Pulse Ox
98.2 F 66 18 156/58 96
06/20/23 11:30 06/20/23 11:30 06/20/23 11:30 06/20/23 11:30 06/20/23 11:30
Cardiovascular:: Regular rate and rhythm
Respiratory:: Bilateral: CTA
Lung Excursion:: Normal
Abdomen:: Nontender and Soft
Extremity Edema:: None: Bilateral:
Arreguin Catheter: No
[2023-06-20 16:00] VITALS: BP 167/57
--- NOTE | 2023-06-20 16:11 | PTOTSP ---
Dysphagia Therapy
Instruction completed in dysphagia exercises. Patient tolerated single sips of thin water without immediate s/s of aspiration. Cannot r/o silent aspiration bedside though no aspiration noted with thin liquids on video swallow study 06/18/2023.
Recommend:
1. Thin Liquids with single cup sips and direct supervision. Discontinue if s/s of aspiration observed.
2. Medications - with single sips of thin liquid water if non-oral means are not available
3. Oral care 3-5x daily to reduce risk for aspiration of oral bacteria
4. Continued dysphagia tx for patient/family education, instruction in compensations, dysphagia exercises, and to determine timing of repeat swallow study.
[2023-06-20 16:30] LABS: Glucose - Point of Care 168 mg/dl (70-99)
[2023-06-20 19:27] VITALS: BP 158/61
--- NOTE | 2023-06-20 20:09 | VATNOTE ---
attempted IV restart, unsuccessful x3. Patient has extremely poor vasculature and only able to use right forearm. Attempted foot IV without success. Another VAT RN to try.
[2023-06-20] MEDS: KEPPRA 500 MG IV (21:00)
[2023-06-20 21:56] LABS: Glucose - Point of Care 174 mg/dl (70-99)
[2023-06-20 23:00] VITALS: BP 172/63
[2023-06-21] MEDS: VIMPAT 50 MG IV ×2 (00:30→14:05)
[2023-06-21 03:00] VITALS: BP 172/61
[2023-06-21 06:00] VITALS: BMI 19.5
[2023-06-21 08:00] VITALS: BP 185/66
[2023-06-21 08:23] LABS: Hematocrit 24.2 % (39.0-52.0); Hemoglobin 8.2 g/dL (13.0-18.0)
--- NOTE | 2023-06-21 08:35 | W.PN.HOSP.TC ---
Addendum entered and electronically signed by Jose Raul Melton DO 06/21/23 14:11:
Informed by speech therapist that patient not tolerating clear liquids. Will reinstate n.p.o. status.
Original Note:
Today's Communication/Plan
-
Continue current care
Assessment / Plan
Assessment / Plan
Gen-awake, NAD
HEENT-NC, AT, anicteric, clear oral mm
Neck-supple
CV-reg, no M, +S1/S2
Lungs-clear B/L
Abd-soft, NT, ND
Ext-no edema
Musculoskeletal-no cyanosis, clubbing
Skin-warm and dry
Acute TME -suspect due to seizures. EEG not done, neurology feels that he no longer needs it. Mental status back to baseline.
Hypertensive emergency (POA) -resolved.
Acute hypoxic respiratory insufficiency -suspect etiology is most likely related to aspiration pneumonitis. Component of pulmonary edema due to heart failure as well. Off oxygen now.
Acute on chronic heart failure preserved EF -improving. Will need to remove volume with dialysis. Patient's admits that he has been drinking some extra fluid lately. Maintain fluid and sodium restriction.
Severe dysphagia -speech therapy following. Not safe to feed by mouth. Will need a PEG tube, GI plans to place on Friday after Plavix washout. Family and patient refused Dobbhoff tube placement. Speech therapy currently recommends clear liquid
diet only. Remains at high risk for aspiration.
ESRD on dialysis -normally gets dialyzed Friday, , Friday.
CAD with history of stenting
DM 2 with hyperglycemia/hypoglycemia -hypoglycemia resolved on dextrose IVF. Lantus discontinued. Hemoglobin A1c 7.8% but may not be reliable in the setting of chronic anemia.
Seizure disorder -continue antiepileptics. Appreciate neurology input.
History of stroke with right hemiparesis
Hypothyroidism -unclear what dose of levothyroxine at home. Apparently patient has not been taking it anyway. TSH is normal here.
Chronic microcytic anemia -likely CKD related anemia. Percentage iron saturation normal. Elevated ferritin likely acute phase reactant. B12 and folic acid normal.
PAD -stable.
Secondary hyperparathyroidism
Underweight
Medication nonadherence -pharmacist mentioned he has not had medications filled in 6 months.
Full code
Dispo -SNF versus home with VN.
Anticipated Discharge: > 48 hours
Subjective/Interval History
-
Date of Service: June 21, 2023
Patient seen and examined. Currently getting dialysis. No complaints.
Objective Data
-
Labs:
Laboratory Results
06/21/23
08:09
Hgb Pending
Hct Pending
Sodium Pending
Potassium Pending
Chloride Pending
Carbon Dioxide Pending
Vital Signs:
Vital Signs
Temp Pulse Resp BP Pulse Ox
98.4 F 75 18 185/66 94
06/21/23 08:00 06/21/23 08:00 06/21/23 08:00 06/21/23 08:00 06/21/23 08:00
I&O
06/20/23 06/21/23 06/22/23
06:59 06:59 06:59
Intake Total 560 / 560 780 / 780
Output Total 50 / 50
Balance 510 / 510 780 / 780
Review of Systems
-
History Source: Patient
All other systems: Reviewed and negative
[2023-06-21 08:40] LABS: Carbon Dioxide 22 mmol/L (22-30); Chloride 102 mmol/L (98-107); Potassium 4.1 mmol/L (3.5-5.1); Sodium 133 mmol/L (135-145)
[2023-06-21] MEDS: D5/0.9% SODIUM CHLORIDE 1000 IV (09:46)
[2023-06-21] MEDS: D5/0.9% SODIUM CHLORIDE IV (09:47)
[2023-06-21] MEDS: RETACRIT 3000 UNITS IV (09:50)
[2023-06-21 09:53] LABS: Glucose - Point of Care 126 mg/dl (70-99)
[2023-06-21] MEDS: NOVOLOG FLEXPEN-LOW RESISTANCE SC ×2 (09:53→12:09)
--- NOTE | 2023-06-21 11:47 | W.PN.NEPH.HD ---
Assessment
-
pt seen during HD
vitals table
sbp high , UF as tolerates
plan PEG on Friday but refusing unclear if he can make decision with confusion
AVF functions well
decrease IVF rate to 40, had sig wt gains noted
Progress Note - Hemodialysis
-
Date of Service: June 21, 2023
Duration: 30 minutes and 3 hours
Potassium Bath: 3
Calcium Bath: 2.5
Opti-Dialyzer: 160
Ultrafiltration: Other (2.5kg)
Blood Flow: 400
Dialysate Flow: 600
Heparin: no
EPO: 3000
--- NOTE | 2023-06-21 11:47 | PTCARENOTE ---
Patient unit ([facility]) AND [facility] all out of SCD machines. Will continue to look around for extra.
[2023-06-21 12:00] VITALS: BP 189/74
[2023-06-21 12:09] LABS: Glucose - Point of Care 117 mg/dl (70-99)
[2023-06-21] MEDS: ASPIRIN 300 MG RECTAL (12:16)
[2023-06-21 15:00] VITALS: BP 166/60
--- NOTE | 2023-06-21 15:01 | PTCARENOTE ---
Patient verbalized to RN this shift 'I do not want a stomach tube' 3x. Pt also told RN, 'I am at the end of my journey'. Patient has plan for PEG tube placement Friday, but clearly verbalized to RN that he does not want a stomach tube. Pt's son and
asked him if he wanted the PEG tube and again he said no. RN relayed these comments to patient's family over the phone and in person, MD Melton, and Pattern Drum Maker. Hospice consulted.
--- NOTE | 2023-06-21 15:08 | CM ---
CM was consulted to discuss hospice and end of life options. JENNIFER spoke with bedside RN who stated that patient has stated that he does not want PEG placed and he is 'at the end of his journey'. CM spoke with patient and he is agreeable to hospice
consult. CM updated patient's son Wilfred who is also in agreement with hospice consult. CM updated account executive metalworking and placed referral in [facility].
--- NOTE | 2023-06-21 15:55 | HOSPNOTE ---
Called this patients son Wilfred to discuss Hospice services . No answer. Message left with return phone number.Will attempt to contact again tomorrow
[2023-06-21 16:47] LABS: Glucose - Point of Care 152 mg/dl (70-99)
[2023-06-21] MEDS: NOVOLOG FLEXPEN-LOW RESISTANCE 1 UNITS SC (16:50)
[2023-06-21 19:00] VITALS: BP 162/58
[2023-06-21] MEDS: KEPPRA 500 MG IV (21:17)
[2023-06-21 23:00] VITALS: BP 161/59
[2023-06-22] VITALS (7 sets, daily range): BP systolic 169–202; BP diastolic 59–81; BMI 19.1
[2023-06-22] MEDS: VIMPAT 50 MG IV ×3 (00:31→23:30)
[2023-06-22 00:56] LABS: Glucose - Point of Care 141 mg/dl (70-99)
[2023-06-22 06:10] LABS: Glucose - Point of Care 159 mg/dl (70-99)
[2023-06-22] MEDS: NOVOLOG FLEXPEN-LOW RESISTANCE 1 UNITS SC (06:13)
[2023-06-22] MEDS: D5/0.9% SODIUM CHLORIDE 1000 IV (06:37)
[2023-06-22 07:07] LABS: Hematocrit 28.4 % (39.0-52.0); Hemoglobin 9.3 g/dL (13.0-18.0); Mean Corp Hgb Conc. 32.7 g/dL (33.0-37.0); Mean Corpuscular Hgb 25.2 pg (27.0-31.0); Mean Platelet Volume 10.9 fL (7.4-10.4); Platelet Count 205 10^3/uL (130-400); Red Blood Cell Count 3.69 10^6/uL (4.70-6.10); Red Cell Dist. Width 15.1 % (11.5-14.5); White Blood Cell Count 7.8 10^3/uL (4.8-10.8)
[2023-06-22 07:09] LABS: INR 1.17; PT 14.7 Sec (11.4-14.6)
[2023-06-22] MEDS: ASPIRIN 300 MG RECTAL (07:35)
[2023-06-22 07:42] LABS: ALT (SGPT) < 10 U/L (0-50); AST (SGOT) 23 U/L (17-59); Albumin 3.2 g/dl (3.5-5.0); Alkaline Phosphatase 113 U/L (38-126); Blood Urea Nitrogen 15 mg/dl (9-20); Calcium 8.7 mg/dl (8.4-10.2); Carbon Dioxide 25 mmol/L (22-30); Chloride 103 mmol/L (98-107); Estimated Creatinine Clearance 11 ml/min; Glucose 165 mg/dl (70-99); Sodium 136 mmol/L (135-145); Total Bilirubin 0.6 mg/dl (0.2-1.3); Total Protein 6.3 g/dl (6.3-8.2); eGFR 13.57
--- NOTE | 2023-06-22 09:33 | W.PN.HOSP.TC ---
Today's Communication/Plan
-
Await PEG tube tomorrow if patient agreeable
Assessment / Plan
Assessment / Plan
Gen-awake, NAD
HEENT-NC, AT, anicteric, clear oral mm
Neck-supple
CV-reg, no M, +S1/S2
Lungs-clear B/L
Abd-soft, NT, ND
Ext-no edema
Musculoskeletal-no cyanosis, clubbing
Skin-warm and dry
Acute TME -suspect due to seizures. EEG not done, neurology feels that he no longer needs it. Mental status back to baseline.
Hypertensive emergency (POA) -resolved.
Acute hypoxic respiratory insufficiency -suspect etiology is most likely related to aspiration pneumonitis. Component of pulmonary edema due to heart failure as well. Off oxygen now.
Acute on chronic heart failure preserved EF -improving. Will need to remove volume with dialysis. Patient's admits that he has been drinking some extra fluid lately. Maintain fluid and sodium restriction.
Severe dysphagia -speech therapy following. Not safe to feed by mouth. Will need a PEG tube, GI plans to place on Friday after Plavix washout. Family and patient refused Dobbhoff tube placement. Speech therapy currently recommends clear liquid
diet only. Remains at high risk for aspiration.
Patient has been vacillating between wanting a feeding tube and not wanting it. Yesterday he refused a PEG tube but today he is agreeable. I am sure he will continue to change his mind on a daily or hourly basis.
If he truly does not want a feeding tube then the only option would be hospice, but he would have to agree to come off of dialysis permanently.
ESRD on dialysis -normally gets dialyzed Friday, , Friday.
CAD with history of stenting
DM 2 with hyperglycemia/hypoglycemia -hypoglycemia resolved on dextrose IVF. Lantus discontinued. Hemoglobin A1c 7.8% but may not be reliable in the setting of chronic anemia.
Seizure disorder -continue antiepileptics. Appreciate neurology input.
History of stroke with right hemiparesis
Hypothyroidism -unclear what dose of levothyroxine at home. Apparently patient has not been taking it anyway. TSH is normal here.
Chronic microcytic anemia -likely CKD related anemia. Percentage iron saturation normal. Elevated ferritin likely acute phase reactant. B12 and folic acid normal.
PAD -stable.
Secondary hyperparathyroidism
Underweight
Medication nonadherence -pharmacist mentioned he has not had medications filled in 6 months.
Full code
Dispo -SNF versus home with VN.
Anticipated Discharge: > 48 hours
Subjective/Interval History
-
Date of Service: June 22, 2023
Patient seen and examined. No complaints.
Objective Data
-
Labs:
Laboratory Results
06/22/23
05:46
WBC 7.8
Hgb 9.3 L
Hct 28.4 L
Plt Count 205
PT 14.7 H
INR 1.17
Sodium 136
Potassium 4.0
Chloride 103
Carbon Dioxide 25
BUN 15
Creatinine 4.5 H*
Glucose 165 H
Calcium 8.7
Total Bilirubin 0.6
AST 23
ALT < 10
Alkaline Phosphatase 113
Vital Signs:
Vital Signs
Temp Pulse Resp BP Pulse Ox
97.8 F 70 16 185/70 100
06/22/23 07:55 06/22/23 07:55 06/22/23 07:55 06/22/23 07:55 06/22/23 07:55
I&O
06/21/23 06/22/23 06/23/23
06:59 06:59 06:59
Intake Total 780 / 780 960 / 960
Output Total 0 / 0
Balance 780 / 780 960 / 960
Review of Systems
-
History Source: Patient
All other systems: Reviewed and negative
--- NOTE | 2023-06-22 09:46 | HOSPNOTE ---
Spoke with the patients son Wilfred this morning. Patient wants to move forward with peg tube placement and will continue receiving dialysis. Wilfred was encouraged to reach out to Hospice if decisions change.
[2023-06-22 12:18] LABS: Glucose - Point of Care 151 mg/dl (70-99)
[2023-06-22] MEDS: NOVOLOG FLEXPEN-LOW RESISTANCE 6 UNITS SC (12:31)
[2023-06-22] MEDS: APRESOLINE 5 MG IV (12:32)
--- NOTE | 2023-06-22 13:28 | W.PN.NEPH.PH ---
Today's Communication / Plan
-
IV BB while NPO for HTN
Assessment/Plan
-
IMP:
HTN emergency
Acute and recurrent hypoxemic respiratory failure
History recurrent acute respiratory failure secondary to fluid overload +/- accelerated BP
Fluid overload
ESRD TTS [place]
Progressive cerebrovascular disease (vascular dementia?)
Known diastolic dysfunction with chronic fluid overload though EF 50%
History right pleural effusion
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
Left upper arm AV graft
Hypertension, multidrug suboptimally controlled
CAD with prior stenting (LVEF 50%)
PAD
Anemia of CKD
Secondary hyperparathyroidism on vitamin D analog
Seizure disorder
Failure to thrive
Cognitive decline
History of stroke with right-sided hemiparesis.
Sigmoid colitis 2018
COVID-15 April 2022
Former smoker
Chronic fluid overload
Recurrent metabolic encephalopathy
Depression
Hyperphosphatemia
SHPTH
Plan:
Multiple admits for hypervolemia, presented for same
next HD on Friday
previously extra UF resulted in profound hypotension cautious with UF
He is confused from baseline
plan of PEG on Friday per GI
on gentle IVF for NPO
BP are high, schedule metoprolol IV while off coreg
d/w nursing
-
-
Date of Service: June 22, 2023
CC / HPI / ROS
-
Chief Complaint:
ESRD on H D
History of Present Illness:
remains NPO on IVF
no fever, confused form baseline
tolerated HD yesterday
Review of Systems:
offers no complaints
confused
Labs
-
Labs:
WBC 7.8 10^3/uL (4.8-10.8) 06/22/23 05:46
RBC 3.69 10^6/uL (4.70-6.10) L 06/22/23 05:46
Hgb 9.3 g/dL (13.0-18.0) L 06/22/23 05:46
Hct 28.4 % (39.0-52.0) L 06/22/23 05:46
Plt Count 205 10^3/uL (130-400) 06/22/23 05:46
Sodium 136 mmol/L (135-145) 06/22/23 05:46
Potassium 4.0 mmol/L (3.5-5.1) 06/22/23 05:46
Chloride 103 mmol/L (98-107) 06/22/23 05:46
Carbon Dioxide 25 mmol/L (22-30) 06/22/23 05:46
BUN 15 mg/dl (9-20) 06/22/23 05:46
Creatinine 4.5 mg/dL (0.7-1.3) H* 06/22/23 05:46
eGFR 13.57 06/22/23 05:46
Glucose 165 mg/dl (70-99) H 06/22/23 05:46
Calcium 8.7 mg/dl (8.4-10.2) 06/22/23 05:46
Jmo-C-Gtxcewkuoeb Pept > 91290 pg/ml 06/16/23 03:47
Albumin 3.2 g/dl (3.5-5.0) L 06/22/23 05:46
Physical Exam
-
Vital Signs:
Vital Signs
Temp Pulse Resp BP Pulse Ox
97.6 F 78 20 180/88 99
06/22/23 11:55 06/22/23 12:32 06/22/23 11:55 06/22/23 12:32 06/22/23 11:55
Cardiovascular:: Regular rate and rhythm
Respiratory:: Bilateral: CTA (decreased)
Lung Excursion:: Normal
Abdomen:: Nontender and Soft
Extremity Edema:: None: Bilateral:
Arreguin Catheter: No
--- NOTE | 2023-06-22 15:45 | W.PN.GI.CBS2 ---
Today's Communication / Plan
-
--- speech eval
--- continue to educate patient and family
--- GI to sign off, please call if they decide on a PEG
Assessment / Plan
-
Pt is a 67yo with multiple medical issues, CAD with multiple stents on chronic Plavix , CHF, CVA, ulcerative colitis (2018 with mesalamine use then lost for follow up), DM type 2, hypothyroidism, chronic anemia, PAD, ESRD on HD presents to with
shortness of breath with hypoxemia with concern for silent aspiration and aspiration pneumonitis, CHF with volume overload, seizure with acute TME. Pt has been seen by speech for concern for dysphagia and noted with mild oral and moderate to
severe pharyngeal dysphagia with silent aspiration of moderate thick liquids. He was recommended thin liquids with supervision and consider temporary non oral meals to meet nutritional needs as patient has refused some oral meds during admission.
-dysphagia with concern for aspiration pneumonitis on admission with volume overload
-seizure/acute TME
-wt loss failure to thrive
-CAD with prior stents on chronic Plavix
-chronic anemia
-constipation
other medical problems:
-CHF
-ulcerative colitis on flex sig 2018 short course of mesalamine then lost in follow up
-DM type 2
-hypothyroidism
-anemia
-PAD
-ESRD on HD
PLAN:
pt with concern for moderate to severe pharyngeal dysphagia with aspiration and wt loss consider alternative nutrition
pt and family agreeable to peg will want to review further when son present over weekend
reviewed with Dr. Melton for Plavix hold-- last dose 06/18 AM
for speech reeval to see if ok for any oral diet next few days-- per family high risk to pull out DHT
some constipation last stool 06/16 will give Dulcolax today then PRN
cont medical management for fluid overload per renal and hospitalist
will follow
06/22/23 I just spoke to Suzy's at bedside. he's refusing the PEG. She wants speech therapy to try one more time. I also warned her that if he fails they need to make a decision on tube vs hospice. She didn't understand why he can't just get
antibiotics when he gets a pneumonia. I tried to explain it. She said she and her son would never agree to hospice.
-- please contact speech therapy for re-eval tomorrow.
-- let GI know if they change their mind for PEG
Subjective
Subjective
Date of Service: June 22, 2023
patient and have decided against a PEG and want to talk to speech therapy
Objective
Data Reviewed
Laboratory Data:
Laboratory Results
06/22/23 05:46
06/22/23 05:46
Laboratory Results
PT 14.7 Sec (11.4-14.6) H 06/22/23 05:46
INR 1.17 06/22/23 05:46
Magnesium 2.4 mg/dl (1.6-2.3) H 06/16/23 03:47
Total Bilirubin 0.6 mg/dl (0.2-1.3) 06/22/23 05:46
AST 23 U/L (17-59) 06/22/23 05:46
ALT < 10 U/L (0-50) 06/22/23 05:46
Alkaline Phosphatase 113 U/L (38-126) 06/22/23 05:46
Vital Signs and I&O:
Vital Signs
Temp Pulse Resp BP Pulse Ox
97.6 F 78 20 180/88 99
06/22/23 11:55 06/22/23 12:32 06/22/23 11:55 06/22/23 12:32 06/22/23 11:55
I&O
06/21/23 06/22/23 06/23/23
06:59 06:59 06:59
Intake Total 780 / 780 960 / 960
Output Total 0 / 0
Balance 780 / 780 960 / 960
[2023-06-22] MEDS: LOPRESSOR 2.5 MG IV ×2 (16:03→23:29)
[2023-06-22 16:11] LABS: Glucose - Point of Care 120 mg/dl (70-99)
[2023-06-22] MEDS: NOVOLOG FLEXPEN-LOW RESISTANCE SC (16:11)
[2023-06-22 18:08] LABS: Glucose - Point of Care 112 mg/dl (70-99)
[2023-06-22] MEDS: KEPPRA 500 MG IV (21:53)
[2023-06-23 00:07] LABS: Glucose - Point of Care 135 mg/dl (70-99)
[2023-06-23] MEDS: NOVOLOG FLEXPEN-LOW RESISTANCE SC ×2 (00:08→05:33)
[2023-06-23 03:30] VITALS: BP 195/67
[2023-06-23] MEDS: APRESOLINE 5 MG IV ×2 (03:42→08:22)
[2023-06-23] MEDS: D5/0.9% SODIUM CHLORIDE 1000 IV (03:47)
[2023-06-23 05:30] LABS: Glucose - Point of Care 140 mg/dl (70-99)
[2023-06-23 06:00] VITALS: BMI 19.3
[2023-06-23] MEDS: LOPRESSOR 2.5 MG IV (06:21)
[2023-06-23 07:00] VITALS: BP 185/63
[2023-06-23] MEDS: ASPIRIN 300 MG RECTAL (08:18)
[2023-06-23 08:20] VITALS: BMI 19.3
--- NOTE | 2023-06-23 10:00 | PTCARENOTE ---
06/23- despite repeated education, written education and visual aides to assist family in understanding various treatment options, questions for Physician and severity of patient's Aspiration, family has persistent emotional barriers. and Son
verbalize understanding but repeat the question, 'so he can eat?' and Son wants patient to eat, with or without PEG tube. They verbalize understanding of risks of eating with his Aspiration but continue to push for a second opinion. Son
states he will take patient to another facility for a second opinion. At this time, son called and stated, 'I am on my way to pick him up. Have him ready to go [facility]IND[facility].' Patient received results of his most recent Swallow Study this morning, but son
states, 'the speech therapist can call me on this number. I want him to leave.' This RN printed more [employer] educational material on Aspiration, Enteral Feeding Tubes and Hospice information for patient as well as the recommendations from Speech
from his latest Swallow Study. Patient's took the forms. Patient signed AMA forms.
--- NOTE | 2023-06-23 10:13 | W.PN.HOSP.TC ---
Today's Communication/Plan
-
d/c AMA
Assessment / Plan
Assessment / Plan
pt signing out AMA--meds should be crushed IF ABLE, not all meds can be crushed--minced and moist solid food with honey thick liquids (cannot pour liquids)
Acute TME -suspect due to seizures. EEG not done, neurology feels that he no longer needs it. Mental status back to baseline.
Hypertensive emergency (POA) -resolved.
Acute hypoxic respiratory insufficiency -suspect etiology is most likely related to aspiration pneumonitis. Component of pulmonary edema due to heart failure as well. Off oxygen now.
Acute on chronic heart failure preserved EF -improving. Will need to remove volume with dialysis. Patient's admits that he has been drinking some extra fluid lately. Maintain fluid and sodium restriction.
Severe dysphagia -speech therapy following. Not safe to feed by mouth. Will need a PEG tube, GI plans to place on Friday after Plavix washout. Family and patient refused Dobbhoff tube placement. Speech therapy currently recommends clear liquid
diet only. Remains at high risk for aspiration.
Patient has been vacillating between wanting a feeding tube and not wanting it. Yesterday he refused a PEG tube but today he is agreeable. I am sure he will continue to change his mind on a daily or hourly basis.
If he truly does not want a feeding tube then the only option would be hospice, but he would have to agree to come off of dialysis permanently.
ESRD on dialysis -normally gets dialyzed Friday, , Friday.
CAD with history of stenting
DM 2 with hyperglycemia/hypoglycemia -hypoglycemia resolved on dextrose IVF. Lantus discontinued. Hemoglobin A1c 7.8% but may not be reliable in the setting of chronic anemia.
Seizure disorder -continue antiepileptics. Appreciate neurology input.
History of stroke with right hemiparesis
Hypothyroidism -unclear what dose of levothyroxine at home. Apparently patient has not been taking it anyway. TSH is normal here.
Chronic microcytic anemia -likely CKD related anemia. Percentage iron saturation normal. Elevated ferritin likely acute phase reactant. B12 and folic acid normal.
PAD -stable.
Secondary hyperparathyroidism
Underweight
Medication nonadherence -pharmacist mentioned he has not had medications filled in 6 months.
Full code
Dispo -SNF versus home with VN.
Anticipated Discharge: Today
Subjective/Interval History
-
Date of Service: June 23, 2023
called by nurse that patient son wants him d/c'd against medical advice
Objective Data
-
Vital Signs:
max temp for 24 hours
06/22/23
19:35
Temp 99.1 F
Vital Signs
Temp Pulse Resp BP Pulse Ox
97.8 F 77 18 185/63 98
06/23/23 07:00 06/23/23 08:22 06/23/23 07:00 06/23/23 08:22 06/23/23 07:00
I&O
06/22/23 06/23/23 06/24/23
06:59 06:59 06:59
Intake Total 960 / 960 480 / 480
Output Total 0 / 0 0 / 0
Balance 960 / 960 480 / 480
Review of Systems
-
Unable to obtain full review of systems at this time due to: Other (did not ask as pt signing out AMA)
Physical Exam
-
General: Other (did not examine as signing out AMA)
--- NOTE | 2023-06-23 10:21 | CM ---
Patient seen at bedside with and physician. Patient son and insisting on discharge AMNikunj Leiva therapy coming to discuss recent testing results. CM will continue to follow for discharge planning needs.
Plan; home with no needs.
--- NOTE | 2023-06-23 11:38 | PTOTSP ---
Video Swallow Examination
Patient presents with mild oral and at least moderate-severe pharyngeal dysphagia (based on dysphagia outcome severity scale). He continued with aspiration due to delay in swallow onset and reduced airway closure. Sensory response to aspiration
was variable.
*Patient silently aspirated thin liquids with use of chin tuck strategy and mildly thick liquids via cup with head/neck in neutral position. Patient aspirated thin liquids via cup as a liquid wash with head/neck in neutral position but had a
weak/ineffective cough.
Patient continues with acute on chronic dysphagia and is at an elevated risk for aspiration. As patient/family goals are for him to eat/drink understanding possible risks of aspiration, consider diet modifications and strategies below:
Recommend:
1. IDDSI Level 5 (Minced and Moist), IDDSI Level 3 (Moderately)
2. Medications crushed in puree (if medically cleared to do so)
3. Strategies: upright to 90 degrees, small single sips, use multiple swallows to try and clear food from throat
4. Oral care 3-5x daily (to reduce risk for complications if aspiration were to occur)
5. Thin water via cup after oral care, in between meals, for comfort/quality of life
6. Dysphagia therapy after D/C from the acute care level
Education completed with patient after swallow study. He consented to diet changes outlined above. Education completed with patient, , and his son via telephone about results/recommendations of this swallow study, silent aspiration, thickening
liquids (where to purchase, how to use), and recommendation for continued dysphagia therapy (for further patient/family education in results of this test, dysphagia rehabilitation exercises). Written handouts provided.
--- NOTE | 2023-06-23 18:31 | W.DCSUMMARY ---
Discharge Summary
Discharge Data
Date of Admission: 06/16/23
Date of Discharge: 06/23/23
-
Pending Results: No
Hospital Course
Primary care physician : Marcelo Lares
Principal Discharge diagnosis : Severe dysphagia, acute toxic metabolic encephalopathy, hypertensive emergency, acute hypoxemic respiratory insufficiency, acute on chronic diastolic congestive heart failure exacerbation
Chronic Discharge diagnosis : End-stage renal disease on dialysis, coronary artery disease with history of stenting, type 2 diabetes mellitus with hyperglycemia, seizure disorder, history of stroke with right hemiparesis, hypothyroidism, chronic
microcytic anemia, peripheral arterial disease, secondary hyperparathyroidism, underweight, medical nonadherence
Hospital Course : Patient is a 67-year-old male with a history of end-stage renal disease on dialysis, diastolic congestive heart failure who presents with shortness of breath for the last 4 hours and cough for 3 days. He was brought in because his
reported pulse ox was 88%. He reported runny nose for 2 to 3 days as well. He did not take any medications for any symptoms. He denies any sick contacts. Patient was found to have hypertensive emergency and was admitted.
Problem #1: Severe dysphagia. This was the biggest issue during his hospitalization. He was seen in consultation by speech therapy and was not safe to feed by mouth. GI was consulted and plans were made for feeding tube after Plavix washout.
Both the patient and his family refused the small bore feeding tube (Dobbhoff) placement. Apparently the patient has been vacillating between wanting a feeding tube and not wanting it. Family also wants him to be full code but refusing hospice and
wants us to feed him which is not safe. Today, speech was reevaluating him and wanted a video swallow. That was ordered. In the meantime, patient's son called stating that he wanted him to be discharged AGAINST MEDICAL ADVICE after the testing
was done. I did speak with the patient and his stating that if he does not follow the limited diet that he is able to have (video swallow reviewed by speech who recommends minced and moist solid foods with honey thick liquid) that ongoing
aspiration, pneumonia, choking, and possible will occur. Patient did sign the AGAINST MEDICAL ADVICE form.
Problem #2: Acute toxic metabolic encephalopathy. This was suspected to be due to seizures as the patient does have a seizure disorder. Neurology was consulted. EEG was canceled. Mental status was back to baseline. Head CT was without any acute
intracranial abnormalities.
Problem #3: Hypertensive emergency. This was his admitting diagnosis. Apparently he was placed on a nitro drip and admitted to the IMU. All of that has since resolved.
Problem #4: Acute hypoxemic respiratory insufficiency. Etiology of this was likely related to aspiration pneumonitis. There was likely a component of pulmonary edema due to heart failure as well. Patient had been weaned off oxygen.
Problem #5: Acute on chronic diastolic congestive heart failure exacerbation. Nephrology was consulted. Volume was removed with dialysis. Patient's admitted that he was drinking extra fluids. He was maintained on fluid and sodium
restriction.
Problem #6: All other medical issues. These include End-stage renal disease on dialysis, coronary artery disease with history of stenting, type 2 diabetes mellitus with hyperglycemia, seizure disorder, history of stroke with right hemiparesis,
hypothyroidism, chronic microcytic anemia, peripheral arterial disease, secondary hyperparathyroidism, underweight, medical nonadherence. These medical issues were stable during his hospitalization. Medications were continued as able.
Patient has left the hospital AGAINST MEDICAL ADVICE.
Time for discharge 31 minutes.
Procedure findings :
SPEECH DOCUMENTATION AFTER VSE:
Video Swallow Examination
Patient presents with�mild oral and at least moderate-severe pharyngeal dysphagia�(based on dysphagia outcome severity scale).� He continued with aspiration due to delay in swallow onset and reduced airway closure.� Sensory response to aspiration
was variable.
*Patient silently aspirated thin liquids with use of chin tuck strategy and mildly thick liquids via cup with head/neck in neutral position.� Patient aspirated thin liquids via cup as a liquid wash with head/neck in neutral position but had a
weak/ineffective cough.
Patient continues with acute on chronic dysphagia and is at an elevated risk for aspiration.� As patient/family goals are for him to eat/drink understanding possible risks of aspiration, consider diet modifications and strategies below:
Recommend:
1.�IDDSI Level 5 (Minced and Moist), IDDSI Level 3 (Moderately)
2. Medications� crushed in puree (if medically cleared to do so)
3. Strategies: upright to 90 degrees, small single sips, use multiple swallows to try and clear food from throat
4. Oral care 3-5x daily (to reduce risk for complications if aspiration were to occur)
5. Thin water via cup after oral care, in between meals, for comfort/quality of life
6. Dysphagia therapy after D/C from the acute care level
Education completed with patient after swallow study.� He consented to diet changes outlined above.� Education completed with patient, , and his son via telephone about results/recommendations of this swallow study, silent aspiration, thickening
liquids (where to purchase, how to use), and recommendation for continued dysphagia therapy (for further patient/family education in results of this test, dysphagia rehabilitation exercises).� Written handouts provided.
Discharge Plan
-
Patient Disposition: Against Medical Advice
Discharge Diagnosis/Procedures: Severe dysphagia, acute toxic metabolic encephalopathy, hypertensive emergency, acute hypoxemic respiratory insufficiency, acute on chronic diastolic congestive heart failure, end-stage renal
disease on dialysis, coronary artery disease with history of stent, type 2 diabetes mellitus with hyperglycemia, seizure disorder, history of stroke with right hemiparesis, hypothyroidism, anemia of chronic disease, peripheral arterial disease,
secondary hyperparathyroidism, underweight, medical nonadherence
Condition: Fair
Diet: Other diet
Additional Diets: Minced and moist for solids, moderately thick/honey thickness to fluids
Activity: As tolerated
Driving Restrictions: No driving
Bathing Restrictions: None
Activity Restrictions/Additional Instructions:
if medications able to be crushed--crush and give in applesauce--NOT ALL MEDS CAN BE CRUSHED--please check with your pharmacist
Instructions: *PCP/Other [facility] Heart Failure Instructions
Referrals:
Marcelo Lares MD [Family Provider] - in less than 1 week
Prescriptions:
Continued
lacosamide 50 MG tablet
50 mg PO BID
insulin aspart U-100 [Novolog FlexPen U-100 Insulin] 100 unit/mL (3 mL) Insulin Pen
7 - 14 sliding scale dose SC AC
Lumigan 0.01 % Drops
1 drp BOTH EYES QPM
Held
clopidogrel 75 MG tablet
75 mg PO DAILY
Hold Instructions: crush if able
Nephro-Miranda 0.8 mg Tablet
1 tab PO DAILY Qty: 0
Hold Instructions: not sure if can be crushed
sevelamer HCl 800 MG tablet
1,600 mg PO MEALS
Hold Instructions: crush if able
Patient Comments:
04/01/2023, patient's spouse states that patient skips breakfast every morning and will take this medication with their lunch and dinner (twice a day).
docusate sodium [Colace] 100 mg Capsule
100 mg PO BID
Hold Instructions: can't crush
atorvastatin [Lipitor] 80 mg Tablet
80 mg PO DAILY
Hold Instructions: crush if able
isosorbide mononitrate 30 mg Tablet Extended Release 24 Hr
30 mg PO DAILY
Hold Instructions: can't crush extended release med
mesalamine 400 mg capsule (with del rel tablets)
400 mg PO BID
Hold Instructions: not sure if can be crushed
Linzess 72 mcg capsule
72 mcg PO DAILYPRN PRN (Reason: constipation)
Hold Instructions: can't crush
levetiracetam 500 mg tablet extended release 24 hr
500 mg PO HS
Hold Instructions: crush if able
lisinopril 20 mg Tablet
20 mg PO DAILY Qty: 30 0RF
Hold Instructions: crush if able
carvedilol 12.5 mg tablet
12.5 mg PO BID
Hold Instructions: crush if able
levothyroxine 25 mcg tablet
75 mcg PO DAILY
Hold Instructions: crush if able
quetiapine [Seroquel] 25 mg tablet
12.5 mg PO HS
Hold Instructions: crush if able
aspirin 81 mg Tablet,Delayed Release (Dr/Ec)
81 mg PO DAILY
Hold Instructions: crush
Discontinued
acetaminophen [Tylenol] 325 mg Tablet
325 mg PO DAILYPRN PRN (Reason: mild pain)
insulin glargine [Lantus Solostar U-100 Insulin] 100 unit/mL (3 mL) Insulin Pen
9 - 17 unit SC HS
Discharge Orders:
Discharge Patient (As Directed); Ordered 06/23/23
Ordered By: Ana Paula Jordan
Discharge Date and Time
Discharge Date/Time: 06/23/23 10:44
== END 2023-06-23 10:44 | disposition left against medical advice (07) | DRG 177 ==
LOC: 4 WEST ACU 06:07
PROVIDERS: Hospitalist; Student in an Organized Health Care Education/Training Program; ADMITTING PHYSICIAN Internal Medicine; ATTENDING PHYSICIAN Internal Medicine; CONSULT PHYSICIAN Internal Medicine Gastroenterology; CONSULT PHYSICIAN Psychiatry & Neurology Neurology; EMERGENCY PHYSICIAN Emergency Medicine; FAMILY PHYSICIAN Internal Medicine; OTHER PHYSICIAN Internal Medicine
DX: J69.0 Pneumonitis due to inhalation of food and vomit (principal); G92.8 Other toxic encephalopathy; I50.33 Acute on chronic diastolic (congestive) heart failure; N18.6 End stage renal disease; J96.91 Respiratory failure, unspecified with hypoxia; I69.351 Hemiplegia and hemiparesis following cerebral infarction affecting right dominant side; N25.81 Secondary hyperparathyroidism of renal origin; I16.1 Hypertensive emergency; I13.2 Hypertensive heart and chronic kidney disease with heart failure and with stage 5 chronic kidney disease, or end stage renal disease; Z68.1 Body mass index [BMI] 19.9 or less, adult; Z11.52 Encounter for screening for COVID-19; E11.22 Type 2 diabetes mellitus with diabetic chronic kidney disease; J06.9 Acute upper respiratory infection, unspecified; Z87.891 Personal history of nicotine dependence; I25.10 Atherosclerotic heart disease of native coronary artery without angina pectoris; Z95.5 Presence of coronary angioplasty implant and graft; E03.9 Hypothyroidism, unspecified; Z79.82 Long term (current) use of aspirin; E11.319 Type 2 diabetes mellitus with unspecified diabetic retinopathy without macular edema; E11.40 Type 2 diabetes mellitus with diabetic neuropathy, unspecified; Z79.4 Long term (current) use of insulin; G40.909 Epilepsy, unspecified, not intractable, without status epilepticus; J98.4 Other disorders of lung; R13.13 Dysphagia, pharyngeal phase; E11.51 Type 2 diabetes mellitus with diabetic peripheral angiopathy without gangrene; Z99.2 Dependence on renal dialysis; Z91.199 Patient's noncompliance with other medical treatment and regimen due to unspecified reason; D50.9 Iron deficiency anemia, unspecified; R63.6 Underweight
CPT/HCPCS: 70450; 71045; 74230; 80048; 80051; 80053; 80061; 82607; 82728; 82746; 82962; 83036; 83540; 83550; 83735; 83880; 84443; 84484; 85014; 85018; 85025; 85027; 85045; 85610; 87070; 87811; 92526; 92610; 92611; 93005; 94640; 96374; 96375; 97163; 97167; 97530; 99285; C9254; G0257; P9047; Q5106